=== PATIENT | male | born 1960 | race Caucasian/White ===

== ENCOUNTER 2017-01-04 23:44 | Emergency (ER) | payer OTHER ==
[~2017-01-04] VITALS: Ht 175.2 cm; Wt 99.8 kg
[~2017-01-04 23:44] MED LIST: BACTRIM DS 8001 TA1 PO; BP MED; DIPROSONE0.05% TP; FLEXERIL10 MG PO; KEFLEX500 MG PO; NKHM PO; PERCOCET 325 MG1 TA5 PO; PREDNICOT20 MG PO; PROVENTIL0.09 MG/A1 INH; VICODIN 5/500 505 MG PO
[2017-01-04] MEDS ORDERED: ADVAIR DISKUS 11 DSK INH (23:58)
[2017-01-05 00:09] LABS: BASO # 0.1 10*3/uL (0.0-0.1); BASO % 1.1 % (0.0-1.0); EOS # 0.3 10*3/uL (0.0-0.4); EOS % 3.6 % (1.0-4.0); HEMATOCRIT 42.2 % (42.0-52.0); HEMOGLOBIN 14.6 g/dl (14.0-18.0); LYMPH # 2.7 10*3/uL (1.3-4.4); LYMPH % 29.9 % (27.0-41.0); MEAN CELL VOLUME 85.9 fl (80.0-94.0); MEAN CORPUSCULAR HGB 29.7 pg (27.0-31.0); MEAN CORPUSCULAR HGB CONC 34.6 g/dl (33.0-37.0); MEAN PLATELET VOLUME 11.1 fl (9.6-12.3); MONO # 0.9 10*3/uL (0.1-1.0); MONO % 9.5 % (3.0-9.0); NEUT # 5.1 10*3/uL (2.3-7.9); NEUT % 55.5 % (47.0-73.0); PLATELET COUNT AUTOMATED 267 10*3/uL (130-400); RED BLOOD COUNT 4.91 10*6/uL (4.50-5.90); RED CELL DISTRI WIDTH 12.1 % (0-14.5); WHITE BLOOD COUNT 9.1 10*3/uL (4.8-10.8)
[2017-01-05 00:26] LABS: BUN 10 mg/dl (7-24); CARBON DIOXIDE 29 mmol/L (21-32); CHLORIDE 108 mmol/L (98-107); EST GLOM FILT AFRICAN AMERICAN > 60 ml/min; GLUCOSE 101 mg/dL (65-99); POTASSIUM 4.1 mmol/L (3.5-5.1); SODIUM 143 mmol/L (136-145)
[2017-01-05 00:27] LABS: TROPONIN I < 0.015 ng/ml (<0.045)
[2017-01-05] MEDS ORDERED: PREDNISONE50 MG PO (00:49)
[2017-01-05] MEDS ORDERED: ZITHROMAX250 MG PO (00:49)
[2017-01-05] MEDS ORDERED: VENTOLIN H0.09 MG/AC INH (00:49)
== END 2017-01-05 02:01 | disposition home or self-care (01) ==
LOC: ED 23:44
PROVIDERS: Emergency Medicine
DX: R05 Cough (principal); R06.02 Shortness of breath; R07.89 Other chest pain; J44.9 Chronic obstructive pulmonary disease, unspecified; I10 Essential (primary) hypertension; F17.200 Nicotine dependence, unspecified, uncomplicated; Z88.2 Allergy status to sulfonamides; Z79.899 Other long term (current) drug therapy

== ENCOUNTER 2017-03-28 19:49 | Inpatient (IN) | payer OTHER ==
[2017-03-28] VITALS (8 sets, daily range): BP systolic 148–182; BP diastolic 88–101
[~2017-03-28] VITALS: Ht 175.2 cm; Wt 103.6 kg
--- NOTE | ~2017-03-28 | CON ---
[place], [place] REPORT OF CONSULTATION NAME[id number] UNIT #: [id number] ROOM: 412 DOCTOR: PRANEETH DE JESUS MD BIRTHDATE: [birth year] DOS: 03/29/2017 CARDIOLOGY CONSULTATION REASON FOR CONSULTATION: Chest pain and dyspnea. HISTORY OF PRESENT ILLNESS: The patient is a 57-year-old man who has had a history of recurrent chest pain in the past. I evaluated him for chest pain and EKG changes in October 2015. At that time, he presented with a squeezing pain in his chest that was brought on by exertion and relieved by rest. He also had episodes of hematemesis or hemoptysis. An echocardiogram and stress test, both showed inferoseptal hypokinesis; however, there was no fixed defect on the stress test. I thought he had stunning from an acute inferior ischemic episode and therefore suggested that he undergo a cardiac catheterization. The patient was transferred to [facility] where Dr. Howard Meyer did catheterization on 10/21/2015. The patient had no coronary disease or wall motion abnormality by that time. Since then, he has continued to develop worsening dyspnea. He states that his chest feels tight almost all the time. His breathing is such that he can hardly walk across the room. Because of this, he came back to the hospital on 03/28/2017 for assessment. Since he has been in the hospital, his electrocardiograms have shown left ventricular hypertrophy, but no acute changes. Serial cardiac biomarkers have been normal despite the fact that his pains have lasted days. PAST MEDICAL HISTORY: Includes 1. Long-term and ongoing cigarette abuse. 2. Crack cocaine use. 3. Hypertension. 4. Hyperlipidemia. 5. Catheterization on 10/21/2015 at [facility]. No coronary stenoses demonstrated, ejection fraction 60%. MEDICATIONS PRIOR TO ADMISSION: 1. Albuterol by metered dose inhaler p.r.n. 2. Albuterol by nebulizer q.i.d. 3. Advair Diskus daily. 4. Zithromax 250 mg daily until gone and then prednisone 50 mg daily. ALLERGIES: SULFA DRUGS. FAMILY HISTORY: Father of septic shock. Mother is alive at age 76, but has a history of a pacemaker. REVIEW OF SYSTEMS: The patient denies diplopia or loss of vision. He does have a headache. He denies focal weakness. He denies nausea or vomiting. He denies fevers, chills or sweats. He has not had any recent weight change. He does have constant tightness in his chest. He denies change in bowel or bladder habits. Denies bleeding from his stools or urine. He denies any hot or swollen [place], [place] REPORT OF CONSULTATION NAME: PRANEETH OLSEN UNIT #: [id number] ROOM: 412 DOCTOR: PRANEETH DE JESUS MD BIRTHDATE: [birth year] joints. He denies any skin rashes. He denies polyuria or polydipsia. He denies heat or cold intolerance. Remainder of review of systems is negative except as noted above. SOCIAL HISTORY: The patient works as a class a regional truck driver. He does smoke on a daily basis 3-5 packs per day since age 16. He also uses crack cocaine on a routine basis. PHYSICAL EXAMINATION: GENERAL: The patient is a well-nourished white male who is awake, alert and oriented. VITAL SIGNS: Pulse is 80 and regular, blood pressure is 164/90. He is afebrile, pulse oximetry is 98%. HEENT: Normocephalic and atraumatic. Extraocular muscles are intact. Sclerae are clear. Pupils are equal, round and reactive to light. The oral mucosa is moist. Tongue is midline. NECK: Supple. He has no jugular distention. Carotids are full. I heard no bruits. He had no neck or supraclavicular masses. No thyromegaly. LUNGS: Respirations are somewhat labored at rest. He has markedly decreased breath sounds with expiratory prolongation bilaterally. He does have wheezes bilaterally. I heard no rales. He has no presacral edema. Palpation of the anterior chest does reproduce some of his pains. CARDIOVASCULAR: His heart has a regular rhythm with a fourth heart sound, but no third heart sound or murmur. The PMI is not displaced. There is no precordial heave, lift or thrill. ABDOMEN: Soft and normally active without masses, organomegaly or bruits. EXTREMITIES: Showed no edema. Peripheral pulses are easily palpated in the feet bilaterally. LABORATORY DATA: I reviewed his electrocardiogram. It shows sinus rhythm with possible left ventricular hypertrophy. There is otherwise normal tracing. Chest x-ray shows no infiltrates or cardiomegaly. A CT scan of the head showed normal findings. Hemoglobin is 15.3, white count 12,700, platelet count 248,000. Sodium 141, potassium 3.5, BUN 14, creatinine 0.94. Toxicology shows that his urine cocaine screen is positive. IMPRESSION: 1. Atypical chest pain is almost certainly not cardiac in origin given the prolonged nature of the pain, the fact he has no elevation in troponin and the fact that he has a normal EKG, a little over 1 year after a catheterization showed a completely normal coronary anatomy. 2. Hypertension. 3. Heavy cigarette abuse. 4. Cocaine abuse. 5. Probable exacerbation of chronic obstructive pulmonary disease as a cause for his dyspnea and chest discomfort. PLAN: We will do an echocardiogram. If there are no wall motion abnormalities and if left ventricular function is normal, then no other workup would be indicated. He should certainly modify his risk factors. We will follow him [place], [place] REPORT OF CONSULTATION NAME: PRANEETH OLSEN UNIT #: [id number] ROOM: 412 DOCTOR: PRANEETH DE JESUS MD BIRTHDATE: [birth year] with his other physicians. I thank the hospitalist physicians for asking our advice regarding his care. PRANEETH DE JESUS MD CM:CONSTR:REPORT OF CONSULTATION 1231 03/30/17 0917 interface
--- NOTE | ~2017-03-28 | PROC NOTE ---
[place], [place] PROCEDURE NOTE NAME: PRANEETH OLSEN UNIT #: [id number] ROOM: 412 DOCTOR: LUDWIG ZEPEDA BIRTHDATE: [birth year] DOS: 03/31/2017 MODIFIED BARIUM SWALLOW LOCATION: [facility], room 412, bed 2. ORDERING DOCTOR: ____. RADIOLOGIST: Dr. Gama BACKGROUND INFORMATION: The patient is a 57-year-old male who was seen for modified barium swallow. This test was ordered to rule out aspiration as it is suspected due to pneumonia. The patient was admitted through the Emergency Department due to chest pain of unknown etiology, ringing in the ears and headache. Further medical history includes COPD exacerbation, HTN, prediabetes, malnutrition. The patient is a long time smoker and also admits to recent drug use of crack cocaine. He currently receives a regular diet and thin liquids. The patient reports no difficulty with chewing or swallowing. Oral peripheral examination revealed edentulous status. Lingual, labial and buccal skills were within normal limits in terms of strength, range of motion and coordination. The patient was able to volitionally cough and swallow. METHODS AND MATERIALS USED FOR THE EXAM: The patient was positioned in the lateral plane and examination was viewed under fluoroscopy. The patient was presented with a variety of consistencies to assess swallowing skills including applesauce mixed with barium presented in half teaspoon amounts, barium coated cookie presented in bite size pieces and thin liquid barium taken both by cup and straw. The patient swallowed in single and consecutive sips sized amounts with thin liquids. ORAL PHASE: Unremarkable. PHARYNGEAL PHASE: Unremarkable. ESOPHAGEAL PHASE: This phase of the swallow was not formally assessed during this examination. IMPRESSIONS AND RECOMMENDATIONS: Based upon assessment results, this patient is a 57-year-old patient presents with swallowing skills that are within normal limits. Recommend he remain on regular diet and thin liquids. No followup treatment is warranted. Results and recommendations were shared with the patient and he verbalized understanding and agreement. Thank you very much for this referral. Should you have any questions regarding this patient, please contact the speech pathologist at [phone]. [place], [place] PROCEDURE NOTE NAME: PRANEETH OLSEN UNIT #: [id number] ROOM: 412 DOCTOR: LUDWIG ZEPEDA BIRTHDATE: [birth year] LUDWIG ZEPEDA CM:PROCNOTE:PROCEDURE NOTE [id number] LUDWIG ZEPEDA
--- NOTE | ~2017-03-28 | PR ---
[place], [place] PROGRESS NOTE NAME: PRANEETH OLSEN Leif UNIT #: [id number] ROOM: 412 DOCTOR: PRANEETH DE JESUS MD BIRTHDATE: [birth year] DOS: 03/30/2017 CARDIOLOGY PROGRESS NOTE SUBJECTIVE: The patient was seen at his bedside today on 03/30/2017 for followup of his atypical chest pain. He has ruled out for any acute myocardial injury. An echocardiogram done yesterday showed normal wall motion and systolic function. No significant abnormality of valve function was seen. The patient has been treated for an acute exacerbation of his lung disease and states that his breathing is improving. PHYSICAL EXAMINATION: VITAL SIGNS: Today, his pulse is 100 and regular, blood pressure 143/82. He is afebrile. NECK: Supple. He has no jugular distention. EXTREMITIES: Showed no edema. DIAGNOSTIC STUDIES: A review the echocardiogram with results as noted above. IMPRESSION: 1. Atypical chest pain, most likely musculoskeletal in origin. 2. Hypertension. 3. Heavy cigarette abuse. 4. Cocaine abuse. 5. Exacerbation of chronic obstructive pulmonary disease. PLAN: No further cardiac workup is planned at this time. We will remain available to see him as needed. I did encourage him to curtail his smoking and to stop using cocaine. I thank the hospitalist physicians for asking our advice regarding his care. [place], [place] PROGRESS NOTE NAME: RAÚLPRANEETH Yadav UNIT #: [id number] ROOM: 412 DOCTOR: PRANEETH DE JESUS MD BIRTHDATE: [birth year] PRANEETH DE JESUS MD CM:PNTRANS [id number] PRANEETH DE JESUS MD 03/30/17 1523 interface
[~2017-03-28 19:49] MED LIST changes: +ADVAIR DISKUS 11 DSK INH; +PREDNISONE50 MG PO; +VENTOLIN H0.09 MG/AC INH; +ZITHROMAX250 MG PO
--- NOTE | 2017-03-28 20:11 | NUR ---
PT ADMIS TO CRACK COCAINE. USE. PT IS VERY TALKATIVE, RAMBLING. DENIES NEED FOR MEDICATION TO HELP HIM RELAX. PT DENIES NEED TO VOID FOR SPECIMIN.
[2017-03-28 20:16] LABS: BASO # 0.1 10*3/uL (0.0-0.1); EOS # 0.2 10*3/uL (0.0-0.4); EOS % 1.6 % (1.0-4.0); HEMOGLOBIN 15.4 g/dl (14.0-18.0); LYMPH # 2.1 10*3/uL (1.3-4.4); LYMPH % 18.4 % (27.0-41.0); MEAN CELL VOLUME 84.7 fl (80.0-94.0); MEAN CORPUSCULAR HGB CONC 34.2 g/dl (33.0-37.0); MEAN PLATELET VOLUME 11.1 fl (9.6-12.3); MONO # 0.9 10*3/uL (0.1-1.0); MONO % 7.5 % (3.0-9.0); NEUT # 8.2 10*3/uL (2.3-7.9); NEUT % 71.1 % (47.0-73.0); PLATELET COUNT AUTOMATED 265 10*3/uL (130-400); RED BLOOD COUNT 5.31 10*6/uL (4.50-5.90); RED CELL DISTRI WIDTH 12.3 % (0-14.5); WHITE BLOOD COUNT 11.5 10*3/uL (4.8-10.8)
[2017-03-28 20:26] LABS: ACT PARTIAL THROMBO TIME 23.9 SECONDS (20.8-31.5); INTERNATIONAL NORM RATIO 0.9 (2.0-3.5)
[2017-03-28 20:33] LABS: ALBUMIN 3.4 gm/dl (3.1-4.5); ALKALINE PHOSPHATASE 103 U/L (45-117); BUN 16 mg/dl (7-24); CHLORIDE 107 mmol/L (98-107); CREATININE 1.13 mg/dL (0.70-1.30); MAGNESIUM 2.2 mg/dL (1.5-2.1); POTASSIUM 3.6 mmol/L (3.5-5.1); SGOT/AST 21 IU/L (3-35); SGPT/ALT 25 U/L (12-78); SODIUM 140 mmol/L (136-145); TOTAL PROTEIN 7.4 gm/dL (6.4-8.2)
[2017-03-28 20:35] LABS: TROPONIN I < 0.015 ng/ml (<0.045)
--- NOTE | 2017-03-28 21:29 | NUR ---
CONTINUES TO DENY NEED TO URINATE. GIVEN WATER TO DRINK PER HIS REQUEST
--- NOTE | 2017-03-28 21:58 | NUR ---
C/O HEADACHE, AND "JUST DON'T FEEL GOOD". GIVEN MORE WATER TO DRINK. CONTINUES TO DENY NEED TO URINATE. REFUSING CATHETER.
--- NOTE | 2017-03-28 22:25 | NUR ---
PT GIVEN BOX LUNCH AND DRINK.
[2017-03-28 22:39] LABS: BILIRUBIN NEGATIVE (NEGATIVE); BLOOD NEGATIVE (NEGATIVE); CLARITY SL CLOUDY (CLEAR); COLOR YELLOW (YELLOW); GLUCOSE NEGATIVE (NEGATIVE); KETONE NEGATIVE (NEGATIVE); LEUKO ESTERASE NEGATIVE (NEGATIVE); NITRITE NEGATIVE (NEGATIVE); PH 6.5 (5.0-9.0); UROBILINOGEN 0.2 E.U./dl (0.2-1.0)
[2017-03-28 22:48] LABS: BACTERIA 3+; WBC 0-2 wbc/hpf (0-5)
[2017-03-28 22:49] LABS: URINE AMPHETAMINES < 1000 (1000ng/ml); URINE BARBITURATES < 200 (200ng/ml); URINE BENZODIAZEPINES < 200 (200ng/ml); URINE CANNABINOIDS (THC) < 50 (50ng/ml); URINE COCAINE > 300 (300ng/ml); URINE METHADONE < 300 (300ng/ml); URINE OPIATES < 300 (300ng/ml)
[2017-03-28 22:51] LABS: URINE PHENCYCLIDINE < 25 (25ng/ml)
--- NOTE | 2017-03-28 23:43 | NUR ---
PATIENT CAME TO THE FLOOR VIA WHEELCHAIR FROM THE ED. DAUGHTER WITH PATIENT. UPON REACHING THE ROOM PATIENT ORDERED LARGE AMOUNT OF GRAPE JUICE, STATED HE DID NOT WANT THE 60Z CUPS, AND A SECOND BOX LUNCH, HAD ONE IN ED BEFORE COMING TO THE FLOOR. LUNGS CLEAR, NO DISTRESS NOTED, NO EDEMA NOTED. VITAL WNL. SKIN WARM DRY AND PINK.
[2017-03-29] VITALS: BP 142/72
--- NOTE | 2017-03-29 00:16 | NUR ---
TELEPHONE ORDER RECEIVED FROM DR FINLEY FOR NICODERM PATCH 21MG CHANGE DAILY. PATCH REQUESTED BY PATIENT.
[2017-03-29 04:00] VITALS: BP 148/76
[2017-03-29 06:26] LABS: HEMATOCRIT 45.3 % (42.0-52.0); HEMOGLOBIN 15.3 g/dl (14.0-18.0); MEAN CELL VOLUME 85.5 fl (80.0-94.0); MEAN CORPUSCULAR HGB 28.9 pg (27.0-31.0); MEAN CORPUSCULAR HGB CONC 33.8 g/dl (33.0-37.0); MEAN PLATELET VOLUME 11.6 fl (9.6-12.3); PLATELET COUNT AUTOMATED 248 10*3/uL (130-400); RED CELL DISTRI WIDTH 12.3 % (0-14.5); WHITE BLOOD COUNT 12.7 10*3/uL (4.8-10.8)
[2017-03-29 06:51] LABS: INTERNATIONAL NORM RATIO 0.9 (2.0-3.5); TOTAL CELLS COUNTED 100 #CELLS
[2017-03-29 06:52] LABS: ALBUMIN 3.3 gm/dl (3.1-4.5); BUN 14 mg/dl (7-24); CHLORIDE 108 mmol/L (98-107); MAGNESIUM 2.3 mg/dL (1.5-2.1); PLATELET SUFFICIENCY NORMAL (NORMAL); POTASSIUM 3.5 mmol/L (3.5-5.1); SODIUM 141 mmol/L (136-145)
--- NOTE | 2017-03-29 06:59 | NUR ---
PATIENT REQUESTED TYLENOL FOR HEADACHE, GIVE PER PRN ORDER, PAIN 8/10
[2017-03-29 07:00] LABS: ALKALINE PHOSPHATASE 94 U/L (45-117); CHOLESTEROL 198 mg/dL (<200); CREATININE 0.94 mg/dL (0.70-1.30); HDL CHOLESTEROL 45 mg/dl (40-60); LDL CHOLESTEROL 134 mg/dL (9-159); PHOSPHOROUS 2.8 mg/dL (2.5-4.9); SGOT/AST 19 IU/L (3-35); SGPT/ALT 23 U/L (12-78); THYROID STIM HORMONE (HS) 0.614 uIU/ml (0.358-4.75); TOTAL PROTEIN 7.3 gm/dL (6.4-8.2); TRIGLYCERIDES 94 mg/dl (<150); VLDL CHOLESTEROL 19 mg/dL (6-40)
--- NOTE | 2017-03-29 07:55 | NUR ---
SA NOT INDICATED AT THIS TIME..PT WILL CALL IF SA IS NEEDED. PT IS IN NO DISTRESS SPO2 96% RA
[2017-03-29 08:00] VITALS: BP 164/90
--- NOTE | 2017-03-29 08:00 | NUR ---
Developer Evangelist in to talk to patient. Patient states lives at [address] with ALONE. There are 12 steps in the home. Physician: [facility] Pharmacy: [facility] Home health services: NONE Patient's level of ADLs: INDEPENDENT Patient has working utilities: YES DME: NONE Follow-up physician's appointment after d/c: WILL BE MADE PRIOR TO DC Does patient want to access PORTAL?: Discharge plan HOME. SUDHAKAR JANG
--- NOTE | 2017-03-29 08:03 | NUR ---
24 HR chart check completed.
[2017-03-29 08:08] LABS: VITAMIN D, 25-HYDROXY 23.4 ng/mL (30-100)
--- NOTE | 2017-03-29 09:18 | NUR ---
NOTIFIED DR DE JESUS OF CONSULT. PT'S HR IS NOW IN THE 60-70'S ONCE SHE CALMED DOWN.
--- NOTE | 2017-03-29 10:30 | NUR ---
TAKEN FOR CT OF HEAD VIA WHEELCHAIR.
[2017-03-29 12:00] VITALS: BP 172/90
[2017-03-29] MEDS ORDERED: NORVASC5 MG PO (13:58)
[2017-03-29] MEDS ORDERED: Lopressor25 MG PO (13:59)
[2017-03-29] MEDS ORDERED: BUPROPION ER100 M1 PO (14:00)
[2017-03-29] MEDS ORDERED: PAROXETINE20 MG PO (14:01)
[2017-03-29] MEDS ORDERED: CYCLOBENZAPRINE10 MG PO (14:01)
[2017-03-29] MEDS ORDERED: ZESTORETIC 20-1 EAC1 PO (14:02)
--- NOTE | 2017-03-29 14:04 | NUR ---
MED REC UPDATED WITH ACTUAL MEDS FROM HOME.
[2017-03-29] MEDS ORDERED: VENTOLIN 02.5 MG/3 M INH (14:33)
[2017-03-29] MEDS ORDERED: ADVAIR 250/501 EA INH (14:34)
[2017-03-29 16:00] VITALS: BP 177/97
--- NOTE | 2017-03-29 17:59 | NUR ---
MEDICATED WITH TYLENOL 650MG PO FOR C/O HERNANDEZ.
--- NOTE | 2017-03-29 19:35 | NUR ---
PT. SLEEPING, AROUSES EASY WITH ASSESSMENT. HEP LOCK IN MAURICE ASYMPT. LUNGS CLEAR BILAT. ABDOMEN SOFT, NONDISTENDED AND NORMO. NO PERIPHERAL EDEMA NOTED. NO COMPLAINTS OF CHEST PAIN OR DISCOMFORT. PAO RAMOS RN
[2017-03-29 20:00] VITALS: BP 150/84
--- NOTE | 2017-03-29 23:18 | NUR ---
PT. GIVEN TYLENOL AT 2147 FOR COMPLAINTS OF A HEADACHE, STATES INEFFECTIVE.
[2017-03-30] VITALS: BP 122/55
--- NOTE | 2017-03-30 04:49 | NUR ---
PT. GIVEN MOM FOR HEARTBURN AND BRETTCO FOR HEADACHE. PAO RAMOS RN
[2017-03-30 05:57] LABS: HEMATOCRIT 43.1 % (42.0-52.0); HEMOGLOBIN 14.6 g/dl (14.0-18.0); MEAN CELL VOLUME 85.5 fl (80.0-94.0); MEAN CORPUSCULAR HGB CONC 33.9 g/dl (33.0-37.0); MEAN PLATELET VOLUME 11.4 fl (9.6-12.3); PLATELET COUNT AUTOMATED 265 10*3/uL (130-400); RED BLOOD COUNT 5.04 10*6/uL (4.50-5.90); RED CELL DISTRI WIDTH 12.6 % (0-14.5); WHITE BLOOD COUNT 21.7 10*3/uL (4.8-10.8)
--- NOTE | 2017-03-30 06:04 | NUR ---
PT. STATED NORCO AND MOM MILDLY EFFECTIVE.
[2017-03-30 06:22] LABS: ALBUMIN 3.1 gm/dl (3.1-4.5); ALKALINE PHOSPHATASE 86 U/L (45-117); BUN 15 mg/dl (7-24); CHLORIDE 106 mmol/L (98-107); CREATININE 0.96 mg/dL (0.70-1.30); POTASSIUM 3.4 mmol/L (3.5-5.1); SGOT/AST 14 IU/L (3-35); SGPT/ALT 23 U/L (12-78); SODIUM 140 mmol/L (136-145); TOTAL PROTEIN 6.9 gm/dL (6.4-8.2)
[2017-03-30 06:44] LABS: PLATELET SUFFICIENCY NORMAL (NORMAL); TOTAL CELLS COUNTED 100 #CELLS
[2017-03-30 08:00] VITALS: BP 143/82
[2017-03-30 12:00] VITALS: BP 142/86
[2017-03-30 16:00] VITALS: BP 130/73
--- NOTE | 2017-03-30 19:51 | NUR ---
PT. RESTING IN BED. STILL COMPLAINS OF HEADACHE, STATED NORCO EFFECTIVE FOR "ABOUT AN HOUR". HEPLOCK IN MAURICE ASYMPT. LUNGS CLEAR BUT DIMINISHED BILAT. ABDOMEN SOFT, NONDISTENDED AND NORMO. NO PERIPHERAL EDEMA NOTED. RESP. EASY AND REG NODISTRESS. PAO RAMOS RN
[2017-03-30 20:00] VITALS: BP 147/85
[2017-03-31] VITALS: BP 142/74
--- NOTE | 2017-03-31 02:18 | NUR ---
24 HOUR CHART CHECK DONE.
[2017-03-31 06:04] LABS: ALBUMIN 3.2 gm/dl (3.1-4.5); ALKALINE PHOSPHATASE 88 U/L (45-117); BUN 18 mg/dl (7-24); CHLORIDE 103 mmol/L (98-107); CREATININE 0.93 mg/dL (0.70-1.30); SGOT/AST 126 IU/L (3-35); SGPT/ALT 180 U/L (12-78); SODIUM 141 mmol/L (136-145)
[2017-03-31 06:15] LABS: HEMATOCRIT 44.5 % (42.0-52.0); HEMOGLOBIN 14.6 g/dl (14.0-18.0); MEAN CELL VOLUME 87.6 fl (80.0-94.0); MEAN CORPUSCULAR HGB 28.7 pg (27.0-31.0); MEAN CORPUSCULAR HGB CONC 32.8 g/dl (33.0-37.0); PLATELET COUNT AUTOMATED 289 10*3/uL (130-400); POTASSIUM 4.4 mmol/L (3.5-5.1); RED BLOOD COUNT 5.08 10*6/uL (4.50-5.90); WHITE BLOOD COUNT 16.4 10*3/uL (4.8-10.8)
--- NOTE | 2017-03-31 06:29 | NUR ---
PATIENT MEDICATED WITH NORCO AT 0015 AND 0607 WITH EFFECTIVE RESULTS NOTED BOTH TIMES FOR COMPLAINTS OF A HEADACHE. RESTING IN BED AT THIS TIME WITH EYES CLOSED. NO SIGNS OF SYMPTOMS OF DISTRESS NOTED. NEW IV INSERTED INTO LEFT ARM BY JAISON VERA RN. PATIENT TOLERATED WELL. WILL CONTINUE TO MONITOR. CALL LIGHT IN REACH.
[2017-03-31 07:06] LABS: TOTAL CELLS COUNTED 100 #CELLS
[2017-03-31 07:07] LABS: PLATELET SUFFICIENCY NORMAL (NORMAL)
[2017-03-31 08:00] VITALS: BP 130/80
--- NOTE | 2017-03-31 09:52 | NUR ---
NORCO GIVEN FOR C/O HAEADACHE. WOJEROME MONITOR.
--- NOTE | 2017-03-31 09:56 | NUR ---
SPEECH PATHOLOGY MBS completed as per orders. Skills WNL. Recommend patient remain on regular diet and thin liquids. No follow up treatment is warranted. Results and yaron. were shared with patient who verbalized understanding. Dictated report to follow. Thank you for this referral. LUDWIG ZEPEDA [employer] WORK[employer]
--- NOTE | 2017-03-31 11:10 | NUR ---
SAUL HELPING PER PT.
--- NOTE | 2017-03-31 11:55 | NUR ---
PT ASSESSED FOR HOME O2 FOLLOWS: SAT 95% RA AT REST HR 88 BP 140/80 SAT 92-93%, RA DURING AMBULATION 2 LAPS AROUND 4E HALLWAY. SAT 95%, RA, DURING RECOVERY (REST). HR 105 BP 140/80 SLIGHT SOB NOTED. SOMSTATISTICAL ASSISTANT INFORMED.
[2017-03-31 12:00] VITALS: BP 140/73
--- NOTE | 2017-03-31 14:48 | NUR ---
norco given for c/o headache. will monitor.
--- NOTE | 2017-03-31 15:50 | NUR ---
SAUL HELPING PER PT.
[2017-03-31 16:00] VITALS: BP 129/65
--- NOTE | 2017-03-31 19:33 | NUR ---
PRN PAIN MED GIVEN FOR 7/10 HEADACHE.
[2017-03-31 20:00] VITALS: BP 133/81
--- NOTE | 2017-03-31 20:33 | NUR ---
PRN PAIN MED MINIMALLY EFFECTIVE, PT RATES HEADACHE PAIN 5/10.
--- NOTE | 2017-03-31 21:19 | NUR ---
PRN PAIN MED GIVEN FOR 8/10 HEADACHE PAIN.
--- NOTE | 2017-03-31 22:19 | NUR ---
PRN MORPHINE EFFECTIVE FOR HEADACHE PAIN, PT REPORTS 2/10.
[2017-04-01] VITALS: BP 131/81
[2017-04-01 05:45] LABS: BASO % 0.1 % (0.0-1.0); HEMATOCRIT 43.8 % (42.0-52.0); HEMOGLOBIN 14.8 g/dl (14.0-18.0); LYMPH # 0.9 10*3/uL (1.3-4.4); LYMPH % 6.5 % (27.0-41.0); MEAN CELL VOLUME 87.8 fl (80.0-94.0); MEAN CORPUSCULAR HGB 29.7 pg (27.0-31.0); MEAN CORPUSCULAR HGB CONC 33.8 g/dl (33.0-37.0); MEAN PLATELET VOLUME 11.4 fl (9.6-12.3); MONO # 0.8 10*3/uL (0.1-1.0); NEUT % 86.3 % (47.0-73.0); PLATELET COUNT AUTOMATED 267 10*3/uL (130-400); RED BLOOD COUNT 4.99 10*6/uL (4.50-5.90); RED CELL DISTRI WIDTH 13.1 % (0-14.5); WHITE BLOOD COUNT 13.9 10*3/uL (4.8-10.8)
[2017-04-01 05:59] LABS: BUN 22 mg/dl (7-24); CHLORIDE 102 mmol/L (98-107); POTASSIUM 4.4 mmol/L (3.5-5.1); SODIUM 137 mmol/L (136-145)
[2017-04-01 06:03] LABS: ALKALINE PHOSPHATASE 79 U/L (45-117); CREATININE 0.88 mg/dL (0.70-1.30); SGOT/AST 67 IU/L (3-35); SGPT/ALT 177 U/L (12-78); TOTAL PROTEIN 6.7 gm/dL (6.4-8.2)
--- NOTE | 2017-04-01 07:50 | NUR ---
MORPHINE GIVEN PER REQUEST FOR C/O HEADACHE. RATES 10/10 ON PAIN SCALE. WILL MONITOR.
[2017-04-01 08:00] VITALS: BP 146/86
[2017-04-01] MEDS ORDERED: VITAMIN D31000 UNIT PO (08:18)
[2017-04-01] MEDS ORDERED: AZITHROMYCIN500 M2 PO (08:18)
[2017-04-01] MEDS ORDERED: PREDNISONE10 MG PO (08:18)
[2017-04-01] MEDS ORDERED: ASPIRIN ADULT L81 M2 PO (08:18)
[2017-04-01] MEDS ORDERED: OMNICEF300 MG PO (08:18)
--- NOTE | 2017-04-01 08:51 | NUR ---
NO DC NEEDS AT THIS TIME.
--- NOTE | 2017-04-01 09:05 | NUR ---
MORPHINE EFFECTIVE PER PT.
[2017-04-01 12:00] VITALS: BP 120/63
--- NOTE | 2017-04-01 12:57 | NUR ---
MORPHINE GIVEN FOR C/O HEADACHE. RATES 10/10 ON PAIN SCALE. WILL MONITOR.
--- NOTE | 2017-04-01 14:05 | NUR ---
MORPHINE EFFECTIVE PER PT.
[2017-04-01 16:00] VITALS: BP 129/79
--- NOTE | 2017-04-01 16:59 | NUR ---
PATIENT GIVEN PRN MORPHINE AT 1645 FOR HEADACHE, RATING PAIN OF 7/10. NO OTHER COMPLAINTS AT THIS TIME. WILL CONTINUE TO MONITOR.
[2017-04-01 20:00] VITALS: BP 121/74
[2017-04-02] VITALS: BP 130/72
[2017-04-02 06:06] LABS: HEMATOCRIT 46.9 % (42.0-52.0); HEMOGLOBIN 15.5 g/dl (14.0-18.0); MEAN CELL VOLUME 88.3 fl (80.0-94.0); MEAN CORPUSCULAR HGB 29.2 pg (27.0-31.0); MEAN PLATELET VOLUME 11.4 fl (9.6-12.3); PLATELET COUNT AUTOMATED 297 10*3/uL (130-400); RED BLOOD COUNT 5.31 10*6/uL (4.50-5.90); WHITE BLOOD COUNT 11.5 10*3/uL (4.8-10.8)
[2017-04-02 06:11] LABS: HEPATITIS B SURFACE AG Negative (Negative); HEPATITIS C VIRUS ANTIBODY <0.1 s/co (0.0-0.9)
[2017-04-02 06:16] LABS: ALBUMIN 3.1 gm/dl (3.1-4.5); ALKALINE PHOSPHATASE 90 U/L (45-117); BUN 27 mg/dl (7-24); CHLORIDE 99 mmol/L (98-107); POTASSIUM 4.5 mmol/L (3.5-5.1); SGOT/AST 70 IU/L (3-35); SGPT/ALT 185 U/L (12-78); SODIUM 138 mmol/L (136-145); TOTAL PROTEIN 7.1 gm/dL (6.4-8.2)
--- NOTE | 2017-04-02 07:30 | NUR ---
ASSUMED CARE OF PT AT THIS TIME, PT HAVING CXR DONE
[2017-04-02 07:37] LABS: TOTAL CELLS COUNTED 100 #CELLS
[2017-04-02 07:39] LABS: PLATELET SUFFICIENCY NORMAL (NORMAL)
[2017-04-02 08:00] VITALS: BP 158/95
--- NOTE | 2017-04-02 09:07 | NUR ---
PT C/O H/A REQUESTING PRN PAIN MEDICATION RATES PAIN 7/10, MORPHINE PRN PER ORDERS GIVEN WILL MONITOR EFFECTS
--- NOTE | 2017-04-02 11:18 | NUR ---
Discharge instructions reviewed with patient/family. Patient receptive and verbalizes understanding. Follow-up care arranged. Written instructions given to patient/family. LISA MORENO
== END 2017-04-02 11:18 | disposition home or self-care (01) | DRG 190 ==
LOC: ED 19:49 → 4E 22:18 → EDHOLD 22:18 → 4E 22:21
PROVIDERS: Emergency Medicine; Emergency Medicine Emergency Medical Services; Hospitalist; Internal Medicine; Registered Nurse; ADMIT Internal Medicine
PROC: BD11YZZ Fluoroscopy of Esophagus using Other Contrast (ICD-10-PCS; principal; 2017-03-31)
DX: J44.1 Chronic obstructive pulmonary disease with (acute) exacerbation (principal); J69.0 Pneumonitis due to inhalation of food and vomit; E87.8 Other disorders of electrolyte and fluid balance, not elsewhere classified; I16.1 Hypertensive emergency; E44.0 Moderate protein-calorie malnutrition; F32.9 Major depressive disorder, single episode, unspecified; F41.1 Generalized anxiety disorder; E78.5 Hyperlipidemia, unspecified; E55.9 Vitamin D deficiency, unspecified; R07.89 Other chest pain; I10 Essential (primary) hypertension; R73.9 Hyperglycemia, unspecified; F14.10 Cocaine abuse, uncomplicated; F17.210 Nicotine dependence, cigarettes, uncomplicated; R51 Headache; E66.09 Other obesity due to excess calories; R74.0 Nonspecific elevation of levels of transaminase and lactic acid dehydrogenase [LDH]; Z71.6 Tobacco abuse counseling; Z88.2 Allergy status to sulfonamides; Z79.899 Other long term (current) drug therapy; Z98.41 Cataract extraction status, right eye; Z82.49 Family history of ischemic heart disease and other diseases of the circulatory system; Z68.33 Body mass index [BMI] 33.0-33.9, adult

== ENCOUNTER → 2017-04-12 | Outpatient (CLI) | payer OTHER ==
[~2017-04-12] MED LIST changes: +ADVAIR 250/501 EA INH; +ASPIRIN ADULT L81 M2 PO; +AZITHROMYCIN500 M2 PO; +BUPROPION ER100 M1 PO; +CYCLOBENZAPRINE10 MG PO; +Lopressor25 MG PO; +NORVASC5 MG PO; +OMNICEF300 MG PO; +PAROXETINE20 MG PO; +PREDNISONE10 MG PO; +VENTOLIN 02.5 MG/3 M INH; +VITAMIN D31000 UNIT PO; +ZESTORETIC 20-1 EAC1 PO
== END | disposition home or self-care (01) ==
LOC: RAD 12:21
DX: J18.9 Pneumonia, unspecified organism (principal)

== ENCOUNTER 2017-09-29 10:45 | Inpatient (IN) | payer SELFPAY ==
[2017-09-29] VITALS (9 sets, daily range): BP systolic 110–186; BP diastolic 68–117
[~2017-09-29] VITALS: Ht 175.2 cm; Wt 102.7 kg
--- NOTE | ~2017-09-29 | PR ---
[place], [place] PROGRESS NOTE NAME: PRANEETH OLSEN UNIT #: [id number] ROOM: 412 DOCTOR: PRANEETH DE JESUS MD BIRTHDATE: [birth year] DOS: 09/30/2017 CARDIOLOGY PROGRESS NOTE. SUBJECTIVE: The patient was seen in the Cardiology Department today just prior to a stress test. He states that overnight he has had a persistent headache, but he has noticed that his chest discomfort has improved. He denies syncope. He has had a long history of atypical chest pain. We last evaluated him for this around 2015. Catheterization done 10/21/[address] Howard Meyer at [facility] showed no coronary occlusive disease. He presents now with worsening chest pain with features that are most consistent with musculoskeletal pain. Unfortunately, he does have multiple risk factors as well and therefore, further cardiac evaluation is being performed. PHYSICAL EXAMINATION: VITAL SIGNS: Pulse is 73 and regular, blood pressure 134/96. He is afebrile. He weighs 102.7 kg and has a body mass index of 33.5. HEENT: Normocephalic, atraumatic. Extraocular muscles are intact. Sclerae are clear. Pupils equal, round and react to light. The oral mucosa is moist. Tongue is midline. NECK: Supple. He has no jugular distention. Carotids are full. He has no bruits. He has no neck or supraclavicular masses. LUNGS: Respirations are unlabored. His chest is clear to auscultation and percussion. HEART: Has a regular rhythm and S4 gallop, but no S3. ABDOMEN: Benign. EXTREMITIES: Showed no edema. LABORATORY DATA: His electrocardiogram showed no acute changes and serial cardiac biomarkers have been negative. IMPRESSION: 1. Atypical chest pain. No evidence for acute myocardial infarction. 2. Hypertension, much better controlled this morning. 3. Heavy cigarette abuse. 4. History of cocaine abuse. 5. Probable exacerbation of chronic obstructive pulmonary disease. PLAN: We will proceed with a pharmacologic stress test. Further recommendations will depend upon the results of his stress test. I thank the hospitalist physicians for asking our advice regarding his management. [place], [place] PROGRESS NOTE NAME: PRANEETH OLSEN Leif UNIT #: [id number] ROOM: 412 DOCTOR: PRANEETH DE JESUS MD BIRTHDATE: [birth year] PRANEETH DE JESUS MD CM:PNTRANS [id number] PRANEETH DE JESUS MD 09/30/17 1347 interface
--- NOTE | ~2017-09-29 | CON ---
[place], [place] REPORT OF CONSULTATION [facility]: [id number] UN[facility] #: [id number] ROOM: 412 DOCTOR: PRANEETH DE JESUS MD BIRTHDATE: [birth year] DOS: 09/29/2017 REASON FOR CONSULTATION: Chest pain. HISTORY OF PRESENT ILLNESS: This is one of several hospital admissions for patient who was seen at his bedside today 09/29/2017 for evaluation of persistent chest pain. He is a 57-year-old man whom I have evaluated in the past for chest pain. He presented with chest pain and EKG changes in October 2015. At that time, he had a squeezing chest pain that was brought on by exertion, relieved by rest. He also had episodes of hematemesis or hemoptysis. An echocardiogram and stress test, both showed inferoseptal hypokinesis, but there was no fixed defect on the stress test. I thought he had stunning from an acute inferior ischemic episode and therefore suggested he undergo a cardiac catheterization. The patient was transferred to [facility] where Dr. Howard Meyer did catheterization on 10/21/2015. The patient had normal coronary arteries and no wall motion abnormalities at that time. Since then, he has continued to smoke heavily. He admits to 3-4 packs of cigarettes per day. He states that his chest feels tight much of the time, but recently he had increased pain across his left lower ribs and left anterior chest. His symptoms worsened with a deep breath or with walking in the cold. Symptoms were persistent and therefore he came to the emergency room. In the emergency room, his electrocardiogram showed no acute changes and serial troponin levels have been normal thus far. His pain has been reproduced by palpation of his chest as well. PAST MEDICAL HISTORY: Includes 1. Long-term and ongoing heavy cigarette abuse. 2. The patient has a history of smoking crack cocaine, but states he has not done so in the last several weeks. 3. Hypertension. 4. Hyperlipidemia. 5. Cardiac catheterization 10/21/2015 at [facility]. No coronary disease, demonstrated ejection fraction 60%. MEDICATIONS PRIOR TO ADMISSION: Albuterol 2 puffs q. 4 hours p.r.n., Advair 250/50 one puff b.i.d., aspirin 81 mg per day, lisinopril with hydrochlorothiazide 20/25 one daily and a Nicoderm CQ patch daily. ALLERGIES: The patient lists allergies to SULFA DRUGS. FAMILY HISTORY: The patient's father of septic shock. His mother is living at age 76, but has a history of a pacemaker. REVIEW OF SYSTEMS: The patient denies diplopia, loss of vision, or focal weakness. He does complain of a headache. He denies nausea or vomiting. He denies fevers, chills or sweats. He does have a chronic cough. He denies any recent weight change. He does have the chest tightness described above. He denies any hemoptysis or hematemesis. He denies any change in bowel or bladder habits and denies bleeding from his stools or urine. He denies any peripheral edema or hot or swollen joints. He has not had any skin rash. He denies any [place], [place] REPORT OF CONSULTATION NAME: PRANEETH OLSEN UNIT #: [id number] ROOM: 412 DOCTOR: PRANEETH DE JESUS MD BIRTHDATE: [birth year] polyuria or polydipsia and denies heat or cold intolerance. The remainder of the review of systems is negative except as noted above. SOCIAL HISTORY: The patient works as a regional company truck driver. He smokes 3-5 packs of cigarettes a day and has done so since he was 16 years of age. He has used crack cocaine on a routine basis, but not for the last several weeks. PHYSICAL EXAMINATION: GENERAL: The patient is a well-nourished white male who is awake, alert and oriented. VITAL SIGNS: Pulse is 80 and regular, blood pressure is 143/76, but was 186/117 on admission. He is afebrile. He weighs 102.7 kg and has a body mass index of 33.5. HEENT: Normocephalic and atraumatic. Extraocular muscles are intact. Sclerae are clear. Pupils equal, round and react to light. The oral mucosa is moist. Tongue is midline. NECK: Supple. He has no jugular distention or hepatojugular reflux. He does have a significant adiposity in his supraclavicular fossa bilaterally. He has no thyromegaly. LUNGS: Respirations are unlabored. His chest has decreased breath sounds bilaterally with expiratory prolongation. I did not hear any wheezes or rales. He had no presacral edema or chest wall tenderness. CARDIOVASCULAR: His heart had a regular rhythm. He has a fourth heart sound, but no third heart sound or murmur. The PMI is not displaced. There is no precordial heave, lift or thrill. ABDOMEN: Soft and normally active without masses, organomegaly or bruits. EXTREMITIES: Showed no edema. Peripheral pulses are easily palpated in the feet. LABORATORY DATA: I reviewed his electrocardiogram, which showed sinus rhythm and no acute ST or T-wave changes. Troponin was normal times 2, hemoglobin is 15.5 with hematocrit 45.5, white cells, platelet count is 245,000. Sodium is 141, potassium 3.3, chloride 106, CO2 28, BUN 10, creatinine 0.98. Chest x-ray shows no acute infiltrates and normal cardiac silhouette. IMPRESSIONS: 1. Atypical chest pain. Once again, the patient has prolonged chest pain without any acute EKG changes or elevation in cardiac biomarkers. It seems very unlikely that this is cardiac chest pain, especially since some of his pains are reproducible on palpation. Nonetheless, he does have risk factors for coronary artery disease including heavy cigarette abuse. 2. Hypertension, which is not well controlled. It is not clear if this is due to medication noncompliance. 3. Heavy cigarette abuse. 4. History of cocaine abuse. 5. Probable exacerbation of chronic obstructive pulmonary disease as the primary cause for his dyspnea and chest discomfort. PLAN: It has been 2 years since the patient's last cardiac assessment and [place], [place] REPORT OF CONSULTATION NAME: PRANEETH OLSEN UNIT #: [id number] ROOM: [facility] DOCTOR: PRANEETH DE JESUS MD BIRTHDATE: [birth year] therefore we will do a pharmacologic myocardial perfusion study in the next 24 hours. If that shows normal left ventricular function and perfusion then no further evaluation would be indicated and we will encourage him to stop smoking immediately. I thank the hospitalist physicians for asking our advice regarding his care. PRANEETH DE JESUS MD CM:CONSTR:REPORT OF CONSULTATION 1559 09/29/17 1824 interface
[2017-09-29 11:16] LABS: BASO # 0.1 10*3/uL (0.0-0.1); BASO % 1.2 % (0.0-1.0); EOS # 0.3 10*3/uL (0.0-0.4); EOS % 3.7 % (1.0-4.0); HEMATOCRIT 45.5 % (42.0-52.0); HEMOGLOBIN 15.5 g/dl (14.0-18.0); LYMPH # 2.2 10*3/uL (1.3-4.4); LYMPH % 26.3 % (27.0-41.0); MEAN CORPUSCULAR HGB 29.6 pg (27.0-31.0); MEAN CORPUSCULAR HGB CONC 34.1 g/dl (33.0-37.0); MONO # 0.7 10*3/uL (0.1-1.0); NEUT # 5.1 10*3/uL (2.3-7.9); NEUT % 60.6 % (47.0-73.0); PLATELET COUNT AUTOMATED 245 10*3/uL (130-400); RED BLOOD COUNT 5.23 10*6/uL (4.50-5.90); WHITE BLOOD COUNT 8.4 10*3/uL (4.8-10.8)
[2017-09-29 11:30] LABS: ACT PARTIAL THROMBO TIME 25.7 SECONDS (20.8-31.5); INTERNATIONAL NORM RATIO 0.9 (2.0-3.5)
[2017-09-29 11:32] LABS: ALBUMIN 3.6 gm/dl (3.1-4.5); ALKALINE PHOSPHATASE 122 U/L (45-117); BUN 10 mg/dl (7-24); CHLORIDE 106 mmol/L (98-107); CREATININE 0.98 mg/dL (0.70-1.30); LIPASE 401 U/L (73-393); POTASSIUM 3.3 mmol/L (3.5-5.1); SGOT/AST 15 IU/L (3-35); SGPT/ALT 23 U/L (12-78); SODIUM 141 mmol/L (136-145); TOTAL PROTEIN 7.5 gm/dL (6.4-8.2); TROPONIN I < 0.015 ng/ml (<0.045)
[2017-09-29] MEDS ORDERED: NICODERM CQ1 EACH PO (12:56)
[2017-09-30 00:06] VITALS: BP 159/91
[2017-09-30 07:24] LABS: BASO # 0.1 10*3/uL (0.0-0.1); BASO % 1.6 % (0.0-1.0); EOS # 0.4 10*3/uL (0.0-0.4); EOS % 4.5 % (1.0-4.0); HEMATOCRIT 46.7 % (42.0-52.0); HEMOGLOBIN 15.8 g/dl (14.0-18.0); LYMPH # 2.3 10*3/uL (1.3-4.4); LYMPH % 24.9 % (27.0-41.0); MEAN CELL VOLUME 87.3 fl (80.0-94.0); MEAN CORPUSCULAR HGB 29.5 pg (27.0-31.0); MEAN CORPUSCULAR HGB CONC 33.8 g/dl (33.0-37.0); MEAN PLATELET VOLUME 11.8 fl (9.6-12.3); MONO % 10.7 % (3.0-9.0); NEUT # 5.2 10*3/uL (2.3-7.9); NEUT % 57.7 % (47.0-73.0); PLATELET COUNT AUTOMATED 257 10*3/uL (130-400); RED BLOOD COUNT 5.35 10*6/uL (4.50-5.90)
[2017-09-30 07:50] LABS: ALBUMIN 3.4 gm/dl (3.1-4.5); BUN 16 mg/dl (7-24); CHLORIDE 106 mmol/L (98-107); CREATININE 0.88 mg/dL (0.70-1.30); PHOSPHOROUS 3.5 mg/dL (2.5-4.9); POTASSIUM 3.9 mmol/L (3.5-5.1); SGOT/AST 12 IU/L (3-35); SGPT/ALT 22 U/L (12-78); SODIUM 141 mmol/L (136-145)
[2017-09-30 07:57] LABS: ALKALINE PHOSPHATASE 116 U/L (45-117); CHOLESTEROL 210 mg/dL (<200); FREE T4 0.89 ng/dl (0.76-1.46); HDL CHOLESTEROL 40 mg/dl (40-60); LDL CHOLESTEROL 132 mg/dL (9-159); TOTAL PROTEIN 7.2 gm/dL (6.4-8.2); TRIGLYCERIDES 190 mg/dl (<150); VLDL CHOLESTEROL 38 mg/dL (6-40)
[2017-09-30 08:00] VITALS: BP 134/96
[2017-09-30 08:35] LABS: VITAMIN D, 25-HYDROXY 9.6 ng/mL (30-100)
[2017-09-30 12:00] VITALS: BP 131/92
[2017-09-30 16:00] VITALS: BP 126/91
[2017-09-30] MEDS ORDERED: DOXYCYCLINE MO100 M1 PO (16:57)
[2017-09-30] MEDS ORDERED: PREDNISONE10 MG PO (16:57)
[2017-09-30] MEDS ORDERED: SIMVASTATIN20 MG PO (16:58)
[2017-09-30] MEDS ORDERED: ZESTORETIC 20-1 EAC1 PO (16:59)
== END 2017-09-30 17:36 | disposition home or self-care (01) | DRG 313 ==
LOC: ED 10:45 → EDHOLD 12:43 → 4E 12:50
PROVIDERS: Emergency Medicine; Registered Nurse
PROC: 3E073KZ Introduction of Other Diagnostic Substance into Coronary Artery, Percutaneous Approach (ICD-10-PCS; principal; 2017-09-30)
PROC: 4A02XM4 Measurement of Cardiac Total Activity, External Approach (ICD-10-PCS; principal; 2017-09-30)
DX: R07.89 Other chest pain (principal); E87.8 Other disorders of electrolyte and fluid balance, not elsewhere classified; I16.1 Hypertensive emergency; J44.1 Chronic obstructive pulmonary disease with (acute) exacerbation; E87.6 Hypokalemia; I10 Essential (primary) hypertension; R73.9 Hyperglycemia, unspecified; F14.10 Cocaine abuse, uncomplicated; F41.1 Generalized anxiety disorder; E78.00 Pure hypercholesterolemia, unspecified; E55.9 Vitamin D deficiency, unspecified; E78.5 Hyperlipidemia, unspecified

== ENCOUNTER 2017-12-29 20:15 | Emergency (ER) | payer SELFPAY ==
[~2017-12-29] VITALS: Ht 175.2 cm; Wt 108.9 kg
[~2017-12-29 20:15] MED LIST changes: +DOXYCYCLINE MO100 M1 PO; +NICODERM CQ1 EACH PO; +SIMVASTATIN20 MG PO
[2017-12-29] MEDS ORDERED: DELTASONE20 M1 PO (22:54)
[2017-12-29] MEDS ORDERED: NORCO 5-325 TA1 EACH PO (22:54)
[2017-12-29] MEDS ORDERED: CYCLOBENZAPRINE5 M3 PO (22:54)
== END 2017-12-29 23:10 | disposition home or self-care (01) ==
LOC: ED 20:15
DX: M79.602 Pain in left arm (principal); M54.2 Cervicalgia; M25.512 Pain in left shoulder; R20.2 Paresthesia of skin; F14.10 Cocaine abuse, uncomplicated; F17.200 Nicotine dependence, unspecified, uncomplicated; Z98.890 Other specified postprocedural states; Z79.82 Long term (current) use of aspirin; Z79.899 Other long term (current) drug therapy; Z88.2 Allergy status to sulfonamides

== ENCOUNTER 2018-05-06 18:53 | Emergency (ER) | payer SELFPAY ==
[~2018-05-06] VITALS: Ht 175.2 cm; Wt 99.8 kg
--- NOTE | ~2018-05-06 | EKG ---
[place], [place] ELECTROCARDIOGRAM REPORT NAME: PRANEETH OLSEN UNIT #: [id number] ROOM: DOCTOR: EPIPHANY DRAFT REPORT BIRTHDATE: [birth year] [facility] Test Date: 2018-05-06 Test Time: 19:48:38 Pat Name: PRANEETH OLSEN Department: ER Room: 15 Gender: M Poultry Farmer Meat: EKG.SC : 1960 Requested By: MARGOTH LUX Order Number: [id number] Reading MD: Ramy Madera MD Measurements Intervals [place] Rate: 77 P: 65 MS: 142 QRS: -38 QRSD: 104 T: 76 QT: 407 QTc: 461 Interpretive Statements Sinus rhythm Left axis deviation Abnormal R-wave progression, early transition Electronically Signed On 05-08-2018 9:15:41 PDT by Ramy Madera MD CM:EKGRPT:ELECTROCARDIOGRAM REPORT 47 0915 MARGOTH LUX EPIPHANY DRAFT REPORT MARGOTH LUX
[~2018-05-06 18:53] MED LIST changes: +CYCLOBENZAPRINE5 M3 PO; +DELTASONE20 M1 PO; +NORCO 5-325 TA1 EACH PO
[2018-05-06 19:31] LABS: BASO # 0.1 10*3/uL (0.0-0.1); BASO % 1.2 % (0.0-1.0); EOS # 0.3 10*3/uL (0.0-0.4); EOS % 3.1 % (1.0-4.0); HEMOGLOBIN 15.5 g/dl (14.0-18.0); LYMPH # 2.2 10*3/uL (1.3-4.4); LYMPH % 20.9 % (27.0-41.0); MEAN CELL VOLUME 86.5 fl (80.0-94.0); MEAN CORPUSCULAR HGB 29.8 pg (27.0-31.0); MEAN CORPUSCULAR HGB CONC 34.4 g/dl (33.0-37.0); MEAN PLATELET VOLUME 10.9 fl (9.6-12.3); MONO # 0.9 10*3/uL (0.1-1.0); MONO % 8.3 % (3.0-9.0); NEUT % 66.1 % (47.0-73.0); PLATELET COUNT AUTOMATED 268 10*3/uL (130-400); RED CELL DISTRI WIDTH 12.2 % (0-14.5); WHITE BLOOD COUNT 10.6 10*3/uL (4.8-10.8)
[2018-05-06 19:40] LABS: INTERNATIONAL NORM RATIO 0.9 (2.0-3.5)
[2018-05-06 19:51] LABS: ALBUMIN 3.6 gm/dl (3.1-4.5); ALKALINE PHOSPHATASE 92 U/L (45-117); BUN 21 mg/dl (7-24); CHLORIDE 108 mmol/L (98-107); CREATININE 0.89 mg/dL (0.70-1.30); POTASSIUM 3.7 mmol/L (3.5-5.1); SGOT/AST 21 IU/L (3-35); SGPT/ALT 32 U/L (12-78); SODIUM 144 mmol/L (136-145); TOTAL PROTEIN 6.9 gm/dL (6.4-8.2)
[2018-05-06 19:53] LABS: TROPONIN I < 0.015 ng/ml (<0.045)
[2018-05-06 20:26] LABS: URINE AMPHETAMINES < 1000 (1000ng/ml); URINE BARBITURATES < 200 (200ng/ml); URINE BENZODIAZEPINES < 200 (200ng/ml); URINE CANNABINOIDS (THC) < 50 (50ng/ml); URINE COCAINE > 300 (300ng/ml); URINE METHADONE < 300 (300ng/ml); URINE OPIATES < 300 (300ng/ml)
[2018-05-06 20:27] LABS: URINE PHENCYCLIDINE < 25 (25ng/ml)
== END 2018-05-06 22:29 | disposition home or self-care (01) ==
LOC: ED 18:53
PROVIDERS: Nurse Practitioner Family
DX: R51 Headache (principal); F14.10 Cocaine abuse, uncomplicated; F17.200 Nicotine dependence, unspecified, uncomplicated; J44.9 Chronic obstructive pulmonary disease, unspecified; I10 Essential (primary) hypertension; Z98.890 Other specified postprocedural states; Z88.2 Allergy status to sulfonamides; Z79.82 Long term (current) use of aspirin

== ENCOUNTER 2018-10-11 07:08 | Inpatient (IN) | payer OTHER ==
[~2018-10-11] VITALS: Ht 175.2 cm; Wt 100.2 kg
--- NOTE | ~2018-10-11 | EKG ---
[place], [place] ELECTROCARDIOGRAM REPORT NAME: PRANEETH OLSEN UNIT #: [id number] ROOM: 504 DOCTOR: BLU DRAFT REPORT BIRTHDATE: [birth year] [facility] Test Date: 2018-10-11 Test Time: 14:16:33 Pat Name: PRANEETH OLSEN Department: Room: [facility] Gender: M Film Loader: Francia Bhagat : 1960 Requested By: ALAN LUX Order Number: [id number] Reading MD: Ramy Madera MD Measurements Intervals [place] Rate: 74 P: 44 OK: 146 QRS: -37 QRSD: 106 T: 53 QT: 441 QTc: 490 Interpretive Statements Sinus rhythm Left axis deviation Abnormal R-wave progression, early transition Borderline prolonged QT interval Compared to ECG 05/06/2018 19:48:38 No significant changes Electronically Signed On 10-14-2018 9:49:05 PDT by Ramy Madera MD CM:EKGRPT:ELECTROCARDIOGRAM REPORT 1416 0949 ALAN LUX EPIPHANY DRAFT REPORT ALAN LUX
[2018-10-11 07:09] VITALS: BP 168/101
--- NOTE | 2018-10-11 09:33 | NUR ---
PT STATES NO PAIN RELIEF AT ALL FROM THE MEDICATION. MADE AWARE. VINNY WATKINS RN.
[2018-10-11 10:07] LABS: BASO # 0.1 10*3/uL (0.0-0.1); BASO % 1.4 % (0.0-1.0); EOS # 0.3 10*3/uL (0.0-0.4); EOS % 3.1 % (1.0-4.0); HEMATOCRIT 48.3 % (42.0-52.0); HEMOGLOBIN 16.5 g/dl (14.0-18.0); LYMPH # 1.9 10*3/uL (1.3-4.4); LYMPH % 23.4 % (27.0-41.0); MEAN CELL VOLUME 88.6 fl (80.0-94.0); MEAN CORPUSCULAR HGB 30.3 pg (27.0-31.0); MEAN CORPUSCULAR HGB CONC 34.2 g/dl (33.0-37.0); MEAN PLATELET VOLUME 10.8 fl (9.6-12.3); MONO # 0.8 10*3/uL (0.1-1.0); MONO % 9.2 % (3.0-9.0); NEUT # 5.1 10*3/uL (2.3-7.9); NEUT % 62.5 % (47.0-73.0); PLATELET COUNT AUTOMATED 254 10*3/uL (130-400); RED BLOOD COUNT 5.45 10*6/uL (4.50-5.90); RED CELL DISTRI WIDTH 12.2 % (0-14.5); WHITE BLOOD COUNT 8.1 10*3/uL (4.8-10.8)
[2018-10-11 10:39] LABS: ALBUMIN 3.7 gm/dl (3.1-4.5); ALKALINE PHOSPHATASE 98 U/L (45-117); BUN 15 mg/dl (7-24); CHLORIDE 108 mmol/L (98-107); CREATININE 0.95 mg/dL (0.70-1.30); POTASSIUM 4.1 mmol/L (3.5-5.1); SGOT/AST 15 IU/L (3-35); SGPT/ALT 16 U/L (12-78); SODIUM 140 mmol/L (136-145); TOTAL PROTEIN 7.3 gm/dL (6.4-8.2)
--- NOTE | 2018-10-11 11:30 | NUR ---
Time: 1129 A 58 year old FEMALE admitted to 5E under services of TUNG OMALLEY DO. Pt. arrived via wheel chair from ER. Chief complaint: INTRACTABLE BACK PAIN, UNABLE TO AMBULATE. DANY DURBIN
[2018-10-11 12:00] VITALS: BP 168/101
[2018-10-11 16:00] VITALS: BP 146/85
[2018-10-11 20:00] VITALS: BP 148/80
--- NOTE | 2018-10-11 20:33 | NUR ---
ASSUMED CARE OF PATIENT. ASSESSMENT IS COMPLETE WITH NO S/S OF DISTRESS NOTED. PATIENT C/O BACK PAIN RATING A 10/10 STATING IT HURTS ON THE RIGHT SIDE AND THAT PAIN MEDICATION GIVEN ON FLOOR IS EFFECTIVE FOR ABOUT 5 MINUTES. DAUGHTER PRESENT IN ROOM AND EDUCATION WAS PROVIDED ON TEST RESULTS WITH PATIENT PERMISSION. BED IS LOW, LOCKED, AND CALL LIGHT IS WITHIN REACH. SEE SHIFT ASSESSMENT.
--- NOTE | 2018-10-11 21:13 | NUR ---
PRN ZANAFLEX AND RESTORIL GIVEN AT THIS TIME FOR PATIENT C/O INSOMNIA AND BACKPAIN. PATIENT TOLERATED WELL, CALL LIGHT IS WITHIN REACH.
--- NOTE | 2018-10-11 22:30 | NUR ---
PRN RESTORIL AND ZANAFLEX SEEM EFFECTIVE, PATIENT IS SLEEPING WITH EASY AND REGULAR RESPERS ON ROOM AIR. CALL LIGHT IS WITHIN REACH.
--- NOTE | 2018-10-11 23:48 | NUR ---
ATTEMPTED TO CONTACT RESIDENT MULE DEVELOPER, WILL TRY AGAIN LATER.
[2018-10-12] VITALS: BP 126/50
--- NOTE | 2018-10-12 00:18 | NUR ---
SPOKE WITH DR. PRESTON REGARDING PAIN MANAGEMENT, SEE NEW ORDERS.
--- NOTE | 2018-10-12 00:47 | NUR ---
ONE TIME DOSE OF TORADOL GIVEN AT THIS TIME. PATIENT TOLERATED WELL, CALL LIGHT IS WITHIN REACH.
[2018-10-12 06:12] LABS: HEMOGLOBIN 15.1 g/dl (14.0-18.0); MEAN CELL VOLUME 89.7 fl (80.0-94.0); MEAN CORPUSCULAR HGB 29.4 pg (27.0-31.0); MEAN CORPUSCULAR HGB CONC 32.8 g/dl (33.0-37.0); MEAN PLATELET VOLUME 11.3 fl (9.6-12.3); PLATELET COUNT AUTOMATED 268 10*3/uL (130-400); RED BLOOD COUNT 5.13 10*6/uL (4.50-5.90); RED CELL DISTRI WIDTH 11.9 % (0-14.5); WHITE BLOOD COUNT 17.8 10*3/uL (4.8-10.8)
[2018-10-12 06:37] LABS: ALBUMIN 3.3 gm/dl (3.1-4.5); ALKALINE PHOSPHATASE 92 U/L (45-117); BUN 16 mg/dl (7-24); CHLORIDE 106 mmol/L (98-107); CHOLESTEROL 207 mg/dL (<200); CREATININE 0.84 mg/dL (0.70-1.30); FREE T4 0.99 ng/dl (0.76-1.46); HDL CHOLESTEROL 51 mg/dl (40-60); LDL CHOLESTEROL 135 mg/dL (9-159); PHOSPHOROUS 3.3 mg/dL (2.5-4.9); POTASSIUM 3.5 mmol/L (3.5-5.1); SGOT/AST 8 IU/L (3-35); SGPT/ALT 16 U/L (12-78); SODIUM 142 mmol/L (136-145); TOTAL PROTEIN 6.9 gm/dL (6.4-8.2); TRIGLYCERIDES 104 mg/dl (<150); VLDL CHOLESTEROL 21 mg/dL (6-40)
[2018-10-12 06:42] LABS: VITAMIN D, 25-HYDROXY 16.6 ng/mL (30-100)
[2018-10-12 06:45] LABS: THYROID STIM HORMONE (HS) 0.443 uIU/ml (0.358-4.75)
[2018-10-12 07:45] LABS: PLATELET SUFFICIENCY NORMAL (NORMAL); TOTAL CELLS COUNTED 100 #CELLS
[2018-10-12 08:00] VITALS: BP 115/64
--- NOTE | 2018-10-12 09:00 | NUR ---
PHYSICAL THERAPY Nursing screen received. PT orders also received. Thank you. Talia Tang,PT
--- NOTE | 2018-10-12 09:34 | NUR ---
MEDICATED WITH IV ATIVAN PER ORDERS PRIOR TO MRI. WILL MONITOR
--- NOTE | 2018-10-12 11:03 | NUR ---
Musical Therapist in to talk to patient. Patient states lives at HOME with ALONE. There are BASEMENT steps in the home. Physician: NONE Pharmacy: [facility] Home health services: NONE Patient's level of ADLs: INDEPENDENT Patient has working utilities: YES DME: NONE Follow-up physician's appointment after d/c: WILL FIND ONE AND MAKE APPOINTMENT AFTER DISCHARGE Does patient want to access PORTAL?: NO Discharge plan PT STATES HE LIVES AT HOME ALONE AND IS INDEPENDENT IN CARE, DENIES ANY HOME NEEDS AT THIS TIME. [facility] DOCTOR TOLD HIM THEY WERE PROBABLY TRANSFERRING HIM TO [place]. WILL CONTINUE TO FOLLOW. STATES HE WILL HAVE A RIDE HOME IF DISCHARGED.. HARIS HAMMOND
[2018-10-12 12:00] VITALS: BP 128/65
--- NOTE | 2018-10-12 12:02 | NUR ---
PT MEDICATED WITH ZANAFLEX PER ORDERS FOR C/O BACK PAIN. WILL MONITOR
--- NOTE | 2018-10-12 13:12 | NUR ---
PHYSICAL THERAPY Discharge planning reports patient to be transferred to [facility]. Thank you for this referral. Talia Tang,PT
--- NOTE | 2018-10-12 13:47 | NUR ---
Occupational THerapy evaluation completed on 5 with full eval to follow. Precautions include fall risk, severe back pain limiting functional performance and ADLs,IV UE, high complexity level 29936 with chart review, testing and evaluation. Recommend OT per POC and SNF to enable return home alone at independent level. Thank you for this referral. Yas Caldera OTR/L
--- NOTE | 2018-10-12 13:50 | NUR ---
PHYSICAL THERAPY Patient evaluated on 5, full evaluation to follow. Continue with PT as per plan of care with fall, ALARM, SEVERE C/O'S BACK PAIN, BULGING DISCS and MOD (a) X 2 precautions. Will require SNF. PAtient is HIGH complexity via chart review, tests and evaluation: 94852. Thank you for this referral. Talia Tang,PT
[2018-10-12 16:00] VITALS: BP 129/59
--- NOTE | 2018-10-12 16:04 | NUR ---
IN TO TALK TO PT ABOUT REHAB. PT GIVEN LIST OF LOCAL FACILITIES. [facility]OSE [facility] IF INSURANCE APPROVES.
--- NOTE | 2018-10-12 16:58 | NUR ---
Nursing screen and Occupational Therapy referral received. Thank you.Leif Caldera OTR/l
[2018-10-12 20:00] VITALS: BP 135/59
[2018-10-13] VITALS: BP 136/73
[2018-10-13 08:00] VITALS: BP 118/64
--- NOTE | 2018-10-13 09:00 | NUR ---
funeral planner referred patient to [facility] for short term skilled care, case management will follow
--- NOTE | 2018-10-13 09:48 | NUR ---
OT NOTE Attempted to see pt this A.M. for OT session and upon arrival pt was supine in bed on his L side with reports of 10/10 R leg pain. Pt requesting to be seen at a later time. Will continue with POC as able. BELGICA Grigsby/Kevin
[2018-10-13 12:00] VITALS: BP 129/73
--- NOTE | 2018-10-13 12:30 | NUR ---
[facility] stating [facility] are unable to accept this patient due to drug usuage and because patients insurance requires an up front $2,000 deductable prior to paying anything for snf. Patient will have the same result for any snf placement facility.
--- NOTE | 2018-10-13 13:05 | NUR ---
OT NOTE Pt was seen this P.M. 1:1 for 15 minute OT session. Upon arrival pt was supine in bed. Pt identified by name and and had complaints of 10/10 R leg/hip pain. Pt was educated on log roll technique for back protection with bed mobility. Pt transferred supine to sit EOB with maxA x 2. While sitting EOB pt was leaning to the L to relieve pressure from the R hip, pt was able to tolerate aprox 75 seconds before requesting to lay back down due to pain. Pt transferred sit to supine with maxA X 2. There he was left with call light in hand, tray table in place, and phone in reach. Continue with rec D/C plan to SNF. BELGICA Grigsby/Kevin
--- NOTE | 2018-10-13 13:20 | NUR ---
PHYSICAL THERAPY Patient seen this pm 1:1 for therapy visit and was resting on L side in bed upon therapist arrival. Patient voices 10/10 R hip / low back pain and states it's hard to find a comfortable position due to pain. Patient instructed and able to perform rolling side to side while maintaining "log roll" technique and R LE positioning to alleviate pressure / pain. Patient then tolerated supine to sit EOB transfer, MAX A, with no increase in pain. Patient only able to tolerate 1 minute 12 seconds static sit with slight L side lean for pressure relief. Patient returned to L side lying position with B LE's supported with pillow for comfort. Patient remained in bed with call light, tray table and cell phone. Will continue per POC as tolerated, total treatment time 13 minutes. Allen Smallwood, JOY OPERATOR HELPER
--- NOTE | 2018-10-13 14:47 | NUR ---
Yulia from [facility] called and stated [facility] will accept patient's [employer] insurance but they have to go through a third republican vendor and she is not sure what his co-pay will be. He will be 80/20. CM notified.
[2018-10-13 16:00] VITALS: BP 111/70; BP 113/67
[2018-10-13 20:00] VITALS: BP 155/64
[2018-10-14] VITALS: BP 149/70
--- NOTE | 2018-10-14 | NUR ---
RESTORIL AND NORCO EFFECTIVE FOR PAIN AND INSOMNIA.
--- NOTE | 2018-10-14 | NUR ---
NORCO GIVEN FOR BACK RIGHT HIP PAIN. RESTORIL GIVEN FOR INSOMNIA.
--- NOTE | 2018-10-14 01:37 | NUR ---
24 HR chart check completed.
[2018-10-14 06:45] LABS: BUN 25 mg/dl (7-24); CHLORIDE 105 mmol/L (98-107); POTASSIUM 3.7 mmol/L (3.5-5.1); SODIUM 142 mmol/L (136-145)
--- NOTE | 2018-10-14 08:18 | NUR ---
Spoke with Nataliia from [facility] regarding the copay for home health. She stated she will contact the insurance company for nursing at and get back to us with the copay amount.
--- NOTE | 2018-10-14 10:30 | NUR ---
OT NOTE Pt was seen this A.M. 1:1 for 15 minute OT session. Upon arrival pt was supine in bed. Pt identified by name and and had complaints of 10/10 R hip/leg pain. Pt was re educated on log roll technique and pt performed once with Carissa supine to sit. Second trial completed and pt was able to perform with SBA and reports of no increased pain with transfer. Two sit to stand tranfers completed from bed level with CGA and use of w/w for UE support. Pt was able to tolerate aprox 43 seconds and then 90 seconds before sitting due to pain. While up on his feet pt reported that pain went down to an 8/10. Pt transferred back into bed sit to supine with SBA and good log roll technique carry over. Pt was left supine in bed on his L side with call light in hand, tray table in place, and phone in reach. Continue with rec D/C plan to SNF. BELGICA Grigsby/Kevin
[2018-10-14 12:00] VITALS: BP 108/50
[2018-10-14] MEDS ORDERED: VITAMIN D32000 UNI1 PO (13:47)
[2018-10-14] MEDS ORDERED: PREDNISONE10 MG PO (13:47)
[2018-10-14] MEDS ORDERED: TIZANIDINE HCL4 MG PO (13:47)
[2018-10-14] MEDS ORDERED: NEURONTIN300 MG PO (13:48)
--- NOTE | 2018-10-14 13:55 | NUR ---
PHYSICAL THERAPY Patient seen this pm 1:1 for therapy visit and was supine in bed upon therapist arrival. Patient was joined by his daughter who was present for entire treatment session as patient completed log rolling technique to L side to set up transfer. Patient voices 8/10 R lateral thigh / hip pain at rest and completed supine to sit EOB transfer SBA x 1. Patient tolerated EOB sit x several minutes then performed sit to stand transfer SBA with L side weight shift to control standing pain c/o. Patient tolerated > 1 minute static stand and also able to take 2-3 steps fwd/bkwd, side step with walker support. Patient returned to supine in bed then repositioned himself on L side SBA. Patient and daughter educated on safe truck transfer while promoting nuetral spine posture to control pain while completing safe transfer. Patient and daughter voiced their understanding. Patient remained in bed with call light, tray table and cell phone. Will continue per POC as tolerated, total treatment time 14 mintes.
--- NOTE | 2018-10-14 14:09 | NUR ---
PHYSICAL THERAPY CO-SIGN I approve of the Phyical Therapy notes written above. BETZY BARNES PT
--- NOTE | 2018-10-14 14:28 | NUR ---
SW went to speak with pt regarding his discharge. Pt told nurses he would leave without doctors orders. Pt's dtr was swearomg amd yelling at everyone. She was asked to stop and told to talk in a calm voice. Pt feels he can;t go home because he can't walk. However PT therapist Allen came and was able to get pt to sit up and stand with his walker. Pt was told he would have to have his dtr take him home since he is able to stand and take steps. It was suggested that dtr have her brother or boyfriend be at the home to help her get pt in the house. GINO Person SHIPPING TRACK SUPERVISOR,PUBLIC ADDRESS SERVICER
--- NOTE | 2018-10-14 14:44 | NUR ---
OCCUPATIONAL THERAPY CO-SIGN I approve of the Occupational Therapy notes written above. TEO RAWLS OTR/Kevin
--- NOTE | 2018-10-14 15:20 | NUR ---
Discharge instructions reviewed with patient/family. Patient receptive and verbalizes understanding. Follow-up care arranged. Written instructions given to patient/family. Patient was wheeled from unit by staff member with his daughter present. Patient was educated on new medications and follow up visit. Patient was given a return to work slip per his request. Patient and daughter were educated on the reason why our facility could not sign workers comp forms. The patients daughter became angry and used inappropriate language with the staff. ELDER KOROMA J
[2018-10-22] MEDS ORDERED: Motrin,Rufen800 MG PO ×2 (07:51→07:53)
[2018-10-22] MEDS ORDERED: CYCLOBENZAPRINE10 MG PO ×2 (07:51→07:53)
== END 2018-10-14 15:20 | disposition home or self-care (01) | DRG 552 ==
LOC: ED 07:08 → EDHOLD 09:49 → 5E 09:49
PROVIDERS: Emergency Medicine; Internal Medicine; Registered Nurse; ADMIT Internal Medicine
DX: M48.061 Spinal stenosis, lumbar region without neurogenic claudication (principal); M51.26 Other intervertebral disc displacement, lumbar region; E87.8 Other disorders of electrolyte and fluid balance, not elsewhere classified; E83.41 Hypermagnesemia; F14.90 Cocaine use, unspecified, uncomplicated; M54.16 Radiculopathy, lumbar region; R26.2 Difficulty in walking, not elsewhere classified; F41.1 Generalized anxiety disorder; I10 Essential (primary) hypertension; Z88.2 Allergy status to sulfonamides; E78.5 Hyperlipidemia, unspecified; F17.200 Nicotine dependence, unspecified, uncomplicated; Z82.49 Family history of ischemic heart disease and other diseases of the circulatory system; Z79.51 Long term (current) use of inhaled steroids; Z79.82 Long term (current) use of aspirin; Z79.899 Other long term (current) drug therapy

== ENCOUNTER 2018-11-17 11:12 | Emergency (ER) | payer OTHER ==
[~2018-11-17] VITALS: Ht 175.2 cm; Wt 98.4 kg
[~2018-11-17 11:12] MED LIST changes: +Motrin,Rufen800 MG PO; +NEURONTIN300 MG PO; +TIZANIDINE HCL4 MG PO; +VITAMIN D32000 UNI1 PO
[2018-11-17 12:15] LABS: BASO # 0.1 10*3/uL (0.0-0.1); BASO % 1.1 % (0.0-1.0); EOS # 0.3 10*3/uL (0.0-0.4); EOS % 2.3 % (1.0-4.0); HEMATOCRIT 44.9 % (42.0-52.0); HEMOGLOBIN 15.3 g/dl (14.0-18.0); LYMPH # 2.6 10*3/uL (1.3-4.4); LYMPH % 21.1 % (27.0-41.0); MEAN CORPUSCULAR HGB 29.7 pg (27.0-31.0); MEAN CORPUSCULAR HGB CONC 34.1 g/dl (33.0-37.0); MEAN PLATELET VOLUME 10.4 fl (9.6-12.3); MONO # 1.3 10*3/uL (0.1-1.0); MONO % 10.4 % (3.0-9.0); NEUT # 7.9 10*3/uL (2.3-7.9); NEUT % 64.2 % (47.0-73.0); PLATELET COUNT AUTOMATED 305 10*3/uL (130-400); RED BLOOD COUNT 5.16 10*6/uL (4.50-5.90); RED CELL DISTRI WIDTH 12.1 % (0-14.5); WHITE BLOOD COUNT 12.3 10*3/uL (4.8-10.8)
[2018-11-17 12:24] LABS: ACT PARTIAL THROMBO TIME 22.7 SECONDS (20.8-31.5); INTERNATIONAL NORM RATIO 0.9 (2.0-3.5)
[2018-11-17 12:33] LABS: ALBUMIN 3.2 gm/dl (3.1-4.5); ALKALINE PHOSPHATASE 96 U/L (45-117); BUN 15 mg/dl (7-24); CHLORIDE 109 mmol/L (98-107); POTASSIUM 3.5 mmol/L (3.5-5.1); SGOT/AST 12 IU/L (3-35); SGPT/ALT 23 U/L (12-78); SODIUM 142 mmol/L (136-145); TOTAL PROTEIN 6.8 gm/dL (6.4-8.2)
[2018-11-17] MEDS ORDERED: NEURONTIN300 MG PO ×2 (14:14→14:16)
[2018-11-17] MEDS ORDERED: TYLENOL325 M1 PO (14:15)
[2018-11-17] MEDS ORDERED: PREDNISONE10 MG PO (14:15)
[2018-11-17] MEDS ORDERED: VISTARIL25 MG PO (14:15)
== END 2018-11-17 14:28 | disposition home or self-care (01) ==
LOC: ED 11:12
PROVIDERS: Emergency Medicine
DX: M54.16 Radiculopathy, lumbar region (principal); M79.661 Pain in right lower leg; M25.551 Pain in right hip; M54.5 Low back pain; M25.561 Pain in right knee; J44.9 Chronic obstructive pulmonary disease, unspecified; E78.5 Hyperlipidemia, unspecified; I10 Essential (primary) hypertension; E66.9 Obesity, unspecified; F17.210 Nicotine dependence, cigarettes, uncomplicated; Z88.2 Allergy status to sulfonamides

== ENCOUNTER → 2019-08-23 | Outpatient (CLI) | payer OTHER ==
[~2019-08-23] MED LIST changes: +TYLENOL325 M1 PO; +VISTARIL25 MG PO
[2019-08-23 13:11] LABS: HEMATOCRIT 45.3 % (42.0-52.0); HEMOGLOBIN 15.3 g/dl (14.0-18.0); MEAN CELL VOLUME 87.6 fl (80.0-94.0); MEAN CORPUSCULAR HGB 29.6 pg (27.0-31.0); MEAN CORPUSCULAR HGB CONC 33.8 g/dl (33.0-37.0); MEAN PLATELET VOLUME 10.9 fl (9.6-12.3); RED BLOOD COUNT 5.17 10*6/uL (4.50-5.90); RED CELL DISTRI WIDTH 11.9 % (0-14.5); WHITE BLOOD COUNT 12.3 10*3/uL (4.8-10.8)
[2019-08-23 13:50] LABS: ALBUMIN 3.6 gm/dl (3.1-4.5); ALKALINE PHOSPHATASE 126 U/L (45-117); BUN 10 mg/dl (7-24); CHLORIDE 106 mmol/L (98-107); CHOLESTEROL 222 mg/dL (<200); CREATININE 0.87 mg/dL (0.70-1.30); HDL CHOLESTEROL 32 mg/dl (40-60); LDL CHOLESTEROL 113 mg/dL (9-159); POTASSIUM 3.7 mmol/L (3.5-5.1); SGOT/AST 15 IU/L (3-35); SGPT/ALT 26 U/L (12-78); SODIUM 141 mmol/L (136-145); TOTAL PROTEIN 7.4 gm/dL (6.4-8.2); TRIGLYCERIDES 383 mg/dl (<150); VLDL CHOLESTEROL 77 mg/dL (6-40)
== END | disposition home or self-care (01) ==
LOC: LAB 12:34
PROVIDERS: Family Medicine
DX: J84.10 Pulmonary fibrosis, unspecified (principal); E55.9 Vitamin D deficiency, unspecified; E78.00 Pure hypercholesterolemia, unspecified; E74.9 Disorder of carbohydrate metabolism, unspecified; Z12.5 Encounter for screening for malignant neoplasm of prostate

== ENCOUNTER → 2019-10-07 | Outpatient (CLI) | payer OTHER ==
[2019-10-07 10:03] LABS: HEMATOCRIT 47.5 % (42.0-52.0); HEMOGLOBIN 15.6 g/dl (14.0-18.0); MEAN CELL VOLUME 88.1 fl (80.0-94.0); MEAN CORPUSCULAR HGB 28.9 pg (27.0-31.0); MEAN CORPUSCULAR HGB CONC 32.8 g/dl (33.0-37.0); MEAN PLATELET VOLUME 11.5 fl (9.6-12.3); RED BLOOD COUNT 5.39 10*6/uL (4.50-5.90); RED CELL DISTRI WIDTH 12.3 % (0-14.5); WHITE BLOOD COUNT 9.1 10*3/uL (4.8-10.8)
== END | disposition home or self-care (01) ==
LOC: LAB 09:29
PROVIDERS: Family Medicine
DX: D72.829 Elevated white blood cell count, unspecified (principal)

== ENCOUNTER 2019-11-06 16:12 | Emergency (ER) | payer OTHER ==
[~2019-11-06] VITALS: Ht 175.2 cm; Wt 108.9 kg
[2019-11-06] MEDS ORDERED: PROVENTIL HFA6.7 GM INH (17:11)
[2019-11-06] MEDS ORDERED: SPIRIVA -- 3018 MCG INH (17:11)
[2019-11-06] MEDS ORDERED: POLYSPORIN OINT15 GM T (17:31)
[2019-11-06] MEDS ORDERED: ANTIFUNGAL113 GM T (17:47)
== END 2019-11-06 17:45 | disposition home or self-care (01) ==
LOC: ED 16:12
DX: S60.512A Abrasion of left hand, initial encounter (principal); S79.922A Unspecified injury of left thigh, initial encounter; J44.9 Chronic obstructive pulmonary disease, unspecified; E66.9 Obesity, unspecified; G89.29 Other chronic pain; I10 Essential (primary) hypertension; E78.00 Pure hypercholesterolemia, unspecified; F17.200 Nicotine dependence, unspecified, uncomplicated; Z98.61 Coronary angioplasty status; Z88.2 Allergy status to sulfonamides; Z79.899 Other long term (current) drug therapy; Z79.82 Long term (current) use of aspirin; V23.4XXA Motorcycle driver injured in collision with car, pick-up truck or van in traffic accident, initial encounter; Y93.I9 Activity, other involving external motion; Y92.481 Parking lot as the place of occurrence of the external cause; Y99.8 Other external cause status

== ENCOUNTER → 2020-06-01 | Outpatient (CLI) | payer OTHER ==
[~2020-06-01] MED LIST changes: +ANTIFUNGAL113 GM T; +POLYSPORIN OINT15 GM T; +PROVENTIL HFA6.7 GM INH; +SPIRIVA -- 3018 MCG INH
[2020-06-01 12:24] LABS: HEMATOCRIT 46.3 % (42.0-52.0); MEAN CELL VOLUME 87.2 fl (80.0-94.0); MEAN CORPUSCULAR HGB 28.1 pg (27.0-31.0); MEAN CORPUSCULAR HGB CONC 32.2 g/dl (33.0-37.0); MEAN PLATELET VOLUME 10.7 fl (9.6-12.3); RED BLOOD COUNT 5.31 10*6/uL (4.50-5.90); RED CELL DISTRI WIDTH 12.7 % (0-14.5); WHITE BLOOD COUNT 9.4 10*3/uL (4.8-10.8)
[2020-06-01 12:47] LABS: ALBUMIN 3.5 gm/dl (3.1-4.5); ALKALINE PHOSPHATASE 119 U/L (45-117); BUN 11 mg/dl (7-24); CHLORIDE 107 mmol/L (98-107); CHOLESTEROL 248 mg/dL (<200); HDL CHOLESTEROL 37 mg/dl (40-60); LDL CHOLESTEROL 163 mg/dL (9-159); POTASSIUM 3.6 mmol/L (3.5-5.1); SGOT/AST 17 IU/L (3-35); SGPT/ALT 26 U/L (12-78); SODIUM 139 mmol/L (136-145); TOTAL PROTEIN 7.6 gm/dL (6.4-8.2); TRIGLYCERIDES 242 mg/dl (<150); VLDL CHOLESTEROL 48 mg/dL (6-40)
[2020-06-01 13:33] LABS: VITAMIN D, 25-HYDROXY 9.8 ng/mL (30-100)
== END | disposition home or self-care (01) ==
LOC: LAB 12:00
PROVIDERS: ATTEND Family Medicine
DX: Z12.5 Encounter for screening for malignant neoplasm of prostate (principal); E55.9 Vitamin D deficiency, unspecified; R53.83 Other fatigue; E78.00 Pure hypercholesterolemia, unspecified; I10 Essential (primary) hypertension

== ENCOUNTER 2020-07-15 22:42 | Emergency (ER) | payer OTHER ==
[~2020-07-15] VITALS: Ht 175.2 cm; Wt 113.4 kg
[2020-07-15 23:44] LABS: BASO # 0.1 10*3/uL (0.0-0.1); EOS # 0.2 10*3/uL (0.0-0.4); HEMATOCRIT 46.8 % (42.0-52.0); LYMPH # 1.8 10*3/uL (1.3-4.4); LYMPH % 14.8 % (27.0-41.0); MEAN CELL VOLUME 85.1 fl (80.0-94.0); MEAN CORPUSCULAR HGB CONC 32.9 g/dl (33.0-37.0); MEAN PLATELET VOLUME 10.1 fl (9.6-12.3); MONO % 8.4 % (3.0-9.0); NEUT # 8.7 10*3/uL (2.3-7.9); NEUT % 73.1 % (47.0-73.0); PLATELET COUNT AUTOMATED 329 10*3/uL (130-400); RED CELL DISTRI WIDTH 12.8 % (0-14.5); WHITE BLOOD COUNT 11.8 10*3/uL (4.8-10.8)
[2020-07-15 23:53] LABS: INTERNATIONAL NORM RATIO 0.9 (2.0-3.5)
[2020-07-15 23:59] LABS: ALBUMIN 3.5 gm/dl (3.1-4.5); ALKALINE PHOSPHATASE 123 U/L (45-117); BUN 19 mg/dl (7-24); CHLORIDE 104 mmol/L (98-107); CREATININE 0.93 mg/dL (0.70-1.30); POTASSIUM 3.5 mmol/L (3.5-5.1); SGOT/AST 21 IU/L (3-35); SGPT/ALT 32 U/L (12-78); SODIUM 138 mmol/L (136-145); TOTAL PROTEIN 7.8 gm/dL (6.4-8.2)
== END 2020-07-16 01:29 | disposition home or self-care (01) ==
LOC: ED 22:42
PROVIDERS: Emergency Medicine
DX: R04.0 Epistaxis (principal); J44.9 Chronic obstructive pulmonary disease, unspecified; E78.5 Hyperlipidemia, unspecified; I10 Essential (primary) hypertension; E66.9 Obesity, unspecified; Z88.2 Allergy status to sulfonamides; Z87.891 Personal history of nicotine dependence

== ENCOUNTER → 2020-09-18 | Outpatient (CLI) | payer OTHER ==
[~2020-09-18] MED LIST changes: +NAPROXEN250 MG PO
[2020-09-18 11:26] LABS: BASO # 0.1 10*3/uL (0.0-0.1); EOS # 0.4 10*3/uL (0.0-0.4); EOS % 3.3 % (1.0-4.0); HEMATOCRIT 46.8 % (42.0-52.0); LYMPH # 2.5 10*3/uL (1.3-4.4); LYMPH % 21.9 % (27.0-41.0); MEAN CORPUSCULAR HGB 28.8 pg (27.0-31.0); MEAN CORPUSCULAR HGB CONC 32.7 g/dl (33.0-37.0); MEAN PLATELET VOLUME 10.6 fl (9.6-12.3); MONO # 0.9 10*3/uL (0.1-1.0); MONO % 7.3 % (3.0-9.0); NEUT # 7.6 10*3/uL (2.3-7.9); NEUT % 65.8 % (47.0-73.0); PLATELET COUNT AUTOMATED 319 10*3/uL (130-400); RED BLOOD COUNT 5.32 10*6/uL (4.50-5.90); RED CELL DISTRI WIDTH 13.5 % (0-14.5); WHITE BLOOD COUNT 11.6 10*3/uL (4.8-10.8)
[2020-09-18 11:40] LABS: ALBUMIN 3.5 gm/dl (3.1-4.5); ALKALINE PHOSPHATASE 124 U/L (45-117); BUN 15 mg/dl (7-24); CHLORIDE 107 mmol/L (98-107); POTASSIUM 4.1 mmol/L (3.5-5.1); SGOT/AST 17 IU/L (3-35); SGPT/ALT 36 U/L (12-78); SODIUM 141 mmol/L (136-145); TOTAL PROTEIN 8.2 gm/dL (6.4-8.2)
[2020-09-18 11:52] LABS: BILIRUBIN Negative (Negative); BLOOD Negative (Negative); CLARITY Clear (Clear); COLOR Yellow (Yellow); GLUCOSE Negative (Negative); KETONE Negative (Negative); LEUKO ESTERASE Negative (Negative); NITRITE Negative (Negative); SPECIFIC GRAVITY <= 1.005 (1.001-1.030); UROBILINOGEN 0.2 E.U./dl (0.0-1.0)
[2020-09-18 13:20] LABS: WBC 0-2 wbc/hpf (0-5)
== END | disposition home or self-care (01) ==
LOC: CT 11:00 → LAB 11:03
PROVIDERS: ATTEND Urology
DX: Z12.5 Encounter for screening for malignant neoplasm of prostate (principal); D40.0 Neoplasm of uncertain behavior of prostate; I10 Essential (primary) hypertension; R53.83 Other fatigue; N28.89 Other specified disorders of kidney and ureter

== ENCOUNTER → 2020-10-02 | Outpatient (CLI) | payer OTHER | END | disposition home or self-care (01) | LOC: CT 07:49 | PROVIDERS: ATTEND Urology | DX: N28.89 Other specified disorders of kidney and ureter (principal) ==

== ENCOUNTER → 2020-10-09 | Outpatient (CLI) | payer OTHER ==
[2020-10-09 12:36] LABS: VITAMIN D, 25-HYDROXY 26.3 ng/mL (30-100)
[2020-10-10 05:06] LABS: RHEUMATOID ARTHRITIS FACTOR <10.0 IU/mL (0.0-13.9)
[2020-10-10 06:07] LABS: HEP B CORE AB, IGM Negative (Negative); HEPATITIS B SURFACE AG Negative (Negative); HEPATITIS C VIRUS ANTIBODY <0.1 s/co (0.0-0.9)
[2020-10-10 14:09] LABS: PROSTATE SPECIFIC AG FREE 0.28 ng/mL
[2020-10-11 00:06] LABS: CCP ANTIBODIES IGG/IGA 10 units (0-19)
== END | disposition home or self-care (01) ==
LOC: LAB 11:22
PROVIDERS: Urology; ATTEND Family Medicine
DX: E55.9 Vitamin D deficiency, unspecified (principal); R53.83 Other fatigue; R10.9 Unspecified abdominal pain; M54.9 Dorsalgia, unspecified; M19.90 Unspecified osteoarthritis, unspecified site; R97.20 Elevated prostate specific antigen [PSA]

== ENCOUNTER 2020-11-03 21:14 | Emergency (ER) | payer OTHER ==
[~2020-11-03] VITALS: Wt 127.0 kg
[~2020-11-03 21:14] MED LIST changes: -NAPROXEN250 MG PO
[2020-11-03] MEDS ORDERED: NAPROXEN250 MG PO (22:53)
== END 2020-11-03 23:47 | disposition home or self-care (01) ==
LOC: ED 21:14
DX: S00.12XA Contusion of left eyelid and periocular area, initial encounter (principal); S90.111A Contusion of right great toe without damage to nail, initial encounter; S80.212A Abrasion, left knee, initial encounter; S80.211A Abrasion, right knee, initial encounter; M25.462 Effusion, left knee; R60.0 Localized edema; F17.200 Nicotine dependence, unspecified, uncomplicated; Z79.82 Long term (current) use of aspirin; Z88.2 Allergy status to sulfonamides; Z79.899 Other long term (current) drug therapy; Z98.890 Other specified postprocedural states; Z98.61 Coronary angioplasty status; W19.XXXA Unspecified fall, initial encounter; Y93.89 Activity, other specified; Y92.89 Other specified places as the place of occurrence of the external cause; Y99.8 Other external cause status

== ENCOUNTER 2021-01-23 19:17 | Inpatient (IN) | payer OTHER ==
[~2021-01-23] VITALS: Ht 175.3 cm; Wt 129.7 kg
[~2021-01-23 19:17] MED LIST changes: +NAPROXEN250 MG PO
[2021-01-23 19:30] VITALS: BP 134/83
[2021-01-23 19:40] LABS: BASO # 0.1 10*3/uL (0.0-0.1); BASO % 0.7 % (0.0-1.0); EOS % 0.4 % (1.0-4.0); HEMATOCRIT 44.3 % (42.0-52.0); LYMPH # 0.7 10*3/uL (1.3-4.4); LYMPH % 6.8 % (27.0-41.0); MEAN CELL VOLUME 87.5 fl (80.0-94.0); MEAN CORPUSCULAR HGB 28.3 pg (27.0-31.0); MEAN CORPUSCULAR HGB CONC 32.3 g/dl (33.0-37.0); MEAN PLATELET VOLUME 10.2 fl (9.6-12.3); MONO # 0.7 10*3/uL (0.1-1.0); MONO % 6.7 % (3.0-9.0); NEUT # 8.7 10*3/uL (2.3-7.9); NEUT % 85.1 % (47.0-73.0); PLATELET COUNT AUTOMATED 274 10*3/uL (130-400); RED BLOOD COUNT 5.06 10*6/uL (4.50-5.90); RED CELL DISTRI WIDTH 13.7 % (0-14.5); WHITE BLOOD COUNT 10.2 10*3/uL (4.8-10.8)
[2021-01-23 19:57] LABS: ALBUMIN 3.3 gm/dl (3.1-4.5); ALKALINE PHOSPHATASE 105 U/L (45-117); BUN 14 mg/dl (7-24); CHLORIDE 101 mmol/L (98-107); CREATININE 0.93 mg/dL (0.70-1.30); POTASSIUM 3.8 mmol/L (3.5-5.1); SGOT/AST 42 IU/L (3-35); SGPT/ALT 30 U/L (12-78); SODIUM 137 mmol/L (136-145)
[2021-01-23 20:30] VITALS: BP 135/69
[2021-01-23 22:20] VITALS: BP 144/72
[2021-01-23 22:29] VITALS: BP 152/83
[2021-01-23] MEDS ORDERED: BUDESONIDE-FO10.2 G1 INH (23:03)
[2021-01-23] MEDS ORDERED: AMLODIPINE BESY10 MG PO (23:04)
[2021-01-23] MEDS ORDERED: NAPROXEN250 MG PO (23:06)
[2021-01-23] MEDS ORDERED: ASPIRIN CHEWABL81 MG PO (23:07)
[2021-01-24 06:30] LABS: ALBUMIN 3.1 gm/dl (3.1-4.5); ALKALINE PHOSPHATASE 103 U/L (45-117); BUN 15 mg/dl (7-24); CHLORIDE 105 mmol/L (98-107); CHOLESTEROL 230 mg/dL (<200); CREATININE 0.85 mg/dL (0.70-1.30); LDL CHOLESTEROL 172 mg/dL (9-159); POTASSIUM 4.5 mmol/L (3.5-5.1); SGOT/AST 47 IU/L (3-35); SGPT/ALT 35 U/L (12-78); SODIUM 139 mmol/L (136-145); TOTAL PROTEIN 8.3 gm/dL (6.4-8.2); TRIGLYCERIDES 79 mg/dl (<150)
[2021-01-24 06:34] LABS: THYROID STIM HORMONE (HS) 0.745 uIU/ml (0.358-4.75)
[2021-01-24 06:45] LABS: HEMATOCRIT 48.1 % (42.0-52.0); MEAN CORPUSCULAR HGB 28.2 pg (27.0-31.0); MEAN CORPUSCULAR HGB CONC 30.6 g/dl (33.0-37.0); MEAN PLATELET VOLUME 10.4 fl (9.6-12.3); PLATELET COUNT AUTOMATED 282 10*3/uL (130-400); RED BLOOD COUNT 5.21 10*6/uL (4.50-5.90); WHITE BLOOD COUNT 7.5 10*3/uL (4.8-10.8)
[2021-01-24 06:46] LABS: MEAN CELL VOLUME 92.3 fl (80.0-94.0)
[2021-01-24 07:12] LABS: PLATELET SUFFICIENCY NORMAL (NORMAL); TOTAL CELLS COUNTED 100 #CELLS
[2021-01-24 12:00] VITALS: BP 140/90
[2021-01-24 16:00] VITALS: BP 142/78
[2021-01-24 20:00] VITALS: BP 150/82
[2021-01-25 05:58] LABS: ALKALINE PHOSPHATASE 94 U/L (45-117); BUN 20 mg/dl (7-24); CHLORIDE 101 mmol/L (98-107); CREATININE 0.89 mg/dL (0.70-1.30); POTASSIUM 5.1 mmol/L (3.5-5.1); SGOT/AST 41 IU/L (3-35); SGPT/ALT 39 U/L (12-78); SODIUM 136 mmol/L (136-145); TOTAL PROTEIN 7.9 gm/dL (6.4-8.2)
[2021-01-25 06:41] LABS: HEMATOCRIT 47.4 % (42.0-52.0); MEAN CELL VOLUME 93.3 fl (80.0-94.0); MEAN PLATELET VOLUME 10.8 fl (9.6-12.3); PLATELET COUNT AUTOMATED 304 10*3/uL (130-400); RED BLOOD COUNT 5.08 10*6/uL (4.50-5.90); RED CELL DISTRI WIDTH 13.4 % (0-14.5); WHITE BLOOD COUNT 15.9 10*3/uL (4.8-10.8)
[2021-01-25 07:14] LABS: PLATELET SUFFICIENCY NORMAL (NORMAL); TOTAL CELLS COUNTED 100 #CELLS
[2021-01-25 08:00] VITALS: BP 114/92
[2021-01-25 10:06] LABS: BILIRUBIN Negative (Negative); BLOOD Negative (Negative); CLARITY Clear (Clear); COLOR Yellow (Yellow); GLUCOSE Negative (Negative); KETONE Negative (Negative); LEUKO ESTERASE Negative (Negative); NITRITE Negative (Negative); PH 5.5 (4.5-8.0); SPECIFIC GRAVITY 1.025 (1.001-1.030)
[2021-01-25 10:37] LABS: BACTERIA 1+; EPITHELIAL CELLS 0-2; MUCOUS 1+; RBC 0-2 rbc/hpf (0-2); URIC ACID CRYSTALS 1+; WBC 0-2 wbc/hpf (0-5)
[2021-01-25 11:12] LABS: URINE AMPHETAMINES < 1000 (1000ng/ml); URINE BARBITURATES < 200 (200ng/ml); URINE BENZODIAZEPINES < 200 (200ng/ml); URINE CANNABINOIDS (THC) < 50 (50ng/ml); URINE COCAINE < 300 (300ng/ml); URINE METHADONE < 300 (300ng/ml); URINE OPIATES > 300 (300ng/ml)
[2021-01-25 11:17] LABS: URINE PHENCYCLIDINE < 25 (25ng/ml)
[2021-01-25 12:00] VITALS: BP 160/69
[2021-01-25 12:26] LABS: ABG BASE EXCESS 3.7 mmol/L (-2.0-2.0); ARTERIAL BLOOD GAS PH 7.284 (7.35-7.45)
[2021-01-25 16:00] VITALS: BP 137/68
[2021-01-25 20:00] VITALS: BP 150/79
[2021-01-25 20:09] LABS: ABG BASE EXCESS 9.1 mmol/L (-2.0-2.0); ARTERIAL BLOOD GAS PH 7.341 (7.35-7.45)
[2021-01-26] VITALS: BP 140/80
[2021-01-26 06:07] LABS: BASO % 0.1 % (0.0-1.0); HEMATOCRIT 44.7 % (42.0-52.0); LYMPH # 0.9 10*3/uL (1.3-4.4); LYMPH % 5.9 % (27.0-41.0); MEAN CORPUSCULAR HGB 28.4 pg (27.0-31.0); MEAN CORPUSCULAR HGB CONC 30.9 g/dl (33.0-37.0); MEAN PLATELET VOLUME 10.9 fl (9.6-12.3); MONO # 0.6 10*3/uL (0.1-1.0); MONO % 4.1 % (3.0-9.0); NEUT # 13.9 10*3/uL (2.3-7.9); NEUT % 88.9 % (47.0-73.0); PLATELET COUNT AUTOMATED 304 10*3/uL (130-400); RED BLOOD COUNT 4.86 10*6/uL (4.50-5.90); RED CELL DISTRI WIDTH 13.2 % (0-14.5); WHITE BLOOD COUNT 15.6 10*3/uL (4.8-10.8)
[2021-01-26 06:38] LABS: ALKALINE PHOSPHATASE 86 U/L (45-117); BUN 19 mg/dl (7-24); CHLORIDE 99 mmol/L (98-107); CREATININE 0.76 mg/dL (0.70-1.30); POTASSIUM 4.6 mmol/L (3.5-5.1); SGOT/AST 28 IU/L (3-35); SGPT/ALT 42 U/L (12-78); SODIUM 136 mmol/L (136-145); TOTAL PROTEIN 7.6 gm/dL (6.4-8.2)
[2021-01-26 08:00] VITALS: BP 125/72
[2021-01-26 12:00] VITALS: BP 158/76
[2021-01-26 16:00] VITALS: BP 143/77
[2021-01-26 20:00] VITALS: BP 144/75
[2021-01-27] VITALS: BP 167/95
[2021-01-27 06:46] LABS: BASO % 0.1 % (0.0-1.0); HEMATOCRIT 45.2 % (42.0-52.0); LYMPH # 0.9 10*3/uL (1.3-4.4); LYMPH % 6.3 % (27.0-41.0); MEAN CELL VOLUME 91.7 fl (80.0-94.0); MEAN CORPUSCULAR HGB 28.2 pg (27.0-31.0); MEAN CORPUSCULAR HGB CONC 30.8 g/dl (33.0-37.0); MEAN PLATELET VOLUME 10.3 fl (9.6-12.3); MONO # 1.1 10*3/uL (0.1-1.0); MONO % 7.7 % (3.0-9.0); NEUT % 84.7 % (47.0-73.0); PLATELET COUNT AUTOMATED 303 10*3/uL (130-400); RED BLOOD COUNT 4.93 10*6/uL (4.50-5.90); RED CELL DISTRI WIDTH 13.5 % (0-14.5); WHITE BLOOD COUNT 14.2 10*3/uL (4.8-10.8)
[2021-01-27 07:12] LABS: CHLORIDE 100 mmol/L (98-107); SODIUM 138 mmol/L (136-145)
[2021-01-27 07:21] LABS: ALBUMIN 3.3 gm/dl (3.1-4.5); ALKALINE PHOSPHATASE 80 U/L (45-117); BUN 20 mg/dl (7-24); CREATININE 0.66 mg/dL (0.70-1.30); SGOT/AST 25 IU/L (3-35); SGPT/ALT 40 U/L (12-78); TOTAL PROTEIN 7.6 gm/dL (6.4-8.2)
[2021-01-27 08:09] LABS: ABG BASE EXCESS 7.3 mmol/L (-2.0-2.0); ARTERIAL BLOOD GAS PH 7.321 (7.35-7.45); ARTERIAL BLOOD GAS PO2 77.9 (80-90)
[2021-01-27 12:00] VITALS: BP 183/115
[2021-01-27 20:00] VITALS: BP 161/95
[2021-01-28] VITALS: BP 150/90
[2021-01-28 06:26] LABS: BASO % 0.2 % (0.0-1.0); HEMATOCRIT 46.9 % (42.0-52.0); LYMPH # 0.9 10*3/uL (1.3-4.4); LYMPH % 6.5 % (27.0-41.0); MEAN CELL VOLUME 91.8 fl (80.0-94.0); MEAN CORPUSCULAR HGB CONC 30.5 g/dl (33.0-37.0); MEAN PLATELET VOLUME 10.8 fl (9.6-12.3); MONO # 0.8 10*3/uL (0.1-1.0); MONO % 5.8 % (3.0-9.0); NEUT # 11.3 10*3/uL (2.3-7.9); NEUT % 86.2 % (47.0-73.0); PLATELET COUNT AUTOMATED 319 10*3/uL (130-400); RED BLOOD COUNT 5.11 10*6/uL (4.50-5.90); RED CELL DISTRI WIDTH 13.3 % (0-14.5); WHITE BLOOD COUNT 13.1 10*3/uL (4.8-10.8)
[2021-01-28 06:57] LABS: ALBUMIN 2.9 gm/dl (3.1-4.5); ALKALINE PHOSPHATASE 80 U/L (45-117); BUN 25 mg/dl (7-24); CHLORIDE 99 mmol/L (98-107); CREATININE 0.84 mg/dL (0.70-1.30); POTASSIUM 4.7 mmol/L (3.5-5.1); SGOT/AST 36 IU/L (3-35); SGPT/ALT 59 U/L (12-78); SODIUM 136 mmol/L (136-145); TOTAL PROTEIN 7.4 gm/dL (6.4-8.2)
[2021-01-28 08:00] VITALS: BP 138/89
[2021-01-28 09:24] LABS: ARTERIAL BLOOD GAS PH 7.406 (7.35-7.45); ARTERIAL BLOOD GAS PO2 61.5 (80-90)
[2021-01-28 12:00] VITALS: BP 152/87
[2021-01-28 16:00] VITALS: BP 150/90
[2021-01-28 20:00] VITALS: BP 153/96
[2021-01-29] VITALS: BP 162/97
[2021-01-29 08:00] VITALS: BP 130/85
[2021-01-29 12:00] VITALS: BP 148/78
[2021-01-29] MEDS ORDERED: ATORVASTATIN CA40 M1 PO (14:32)
[2021-01-29] MEDS ORDERED: PREDNISONE10 MG PO (14:32)
[2021-01-29] MEDS ORDERED: DOXYCYCLINE100 M3 PO (14:33)
[2021-01-29 16:00] VITALS: BP 148/78
== END 2021-01-29 17:00 | disposition home or self-care (01) | DRG 861 ==
LOC: ED 19:17 → EDHOLD 20:58 → 4E 20:58 → EDHOLD 21:54 → 4E 21:58
PROVIDERS: Emergency Medicine; Family Medicine; Hospitalist; Internal Medicine; Internal Medicine Critical Care Medicine; Student in an Organized Health Care Education/Training Program; ADMIT Internal Medicine; ATTEND Internal Medicine
PROC: 5A09357 Assistance with Respiratory Ventilation, Less than 24 Consecutive Hours, Continuous Positive Airway Pressure (ICD-10-PCS; principal; 2021-01-23)
PROC: 5A09357 Assistance with Respiratory Ventilation, Less than 24 Consecutive Hours, Continuous Positive Airway Pressure (ICD-10-PCS; 2021-01-26)
DX: Z66 Do not resuscitate (principal); J44.1 Chronic obstructive pulmonary disease with (acute) exacerbation; J96.22 Acute and chronic respiratory failure with hypercapnia; R73.9 Hyperglycemia, unspecified; R74.01 Elevation of levels of liver transaminase levels; J96.21 Acute and chronic respiratory failure with hypoxia; J20.9 Acute bronchitis, unspecified; Z51.5 Encounter for palliative care; J44.0 Chronic obstructive pulmonary disease with (acute) lower respiratory infection; I10 Essential (primary) hypertension; E78.2 Mixed hyperlipidemia; F17.210 Nicotine dependence, cigarettes, uncomplicated; Z96.1 Presence of intraocular lens; E87.2 Acidosis; E83.41 Hypermagnesemia; F41.1 Generalized anxiety disorder; E66.01 Morbid (severe) obesity due to excess calories; Z68.41 Body mass index [BMI] 40.0-44.9, adult; Z71.6 Tobacco abuse counseling; Z88.2 Allergy status to sulfonamides; Z98.41 Cataract extraction status, right eye; Z82.49 Family history of ischemic heart disease and other diseases of the circulatory system; Z79.899 Other long term (current) drug therapy; Z79.82 Long term (current) use of aspirin; Z91.19 Patient's noncompliance with other medical treatment and regimen